=== PATIENT | female | born 1945 | race African-American/Black ===

== ENCOUNTER 2017-03-15 06:00 | Inpatient (IN) ==
--- NOTE | 2017-03-09 09:52 | Cardiothoracic History & Phys ---
History of Present Illness Chief complaint: Intermittent shortness of breath History of present illness: Ms. Mcbride is a 71 year old female who is experiencing intermittent periods of shortness of breath and underwent a workup which included cardiac stress testing and cardiac catheterization which demonstrated critical three-vessel coronary disease including left main coronary involvement. She is referred for bypass surgery but sought a second opinion from Dr.Plavac galina duval who confirmed the diagnosis and also recommended bypass surgery. I saw the patient and agreed with the recommendation of the patient scheduled for admission 03/15 and coronary bypass surgery 03/16/2017. Past medical history includes a history of hyperlipidemia and hypertension and gastroesophageal reflux disease. Patient is a non-smoker and nondrinker. Past surgical history includes section and hysterectomy. She also has a history of right rotator cuff surgery. She has a family history which is positive for cancer on her father's side. Review of systems is noncontributory to the present illness. Physical examination patient is well-developed well-nourished black female in no acute distress. She initially had eyes ears nose and throat show the pupils are equal and react to light and extraocular motions are intact. Oropharynx is benign. Examination of the neck shows no thyromegaly or masses. Examination chest is clear to percussion auscultation. Examination heart shows regular sinus rhythm and no murmurs. Examination of the abdomen shows tenderness and no masses or organomegaly. Neurological examination is grossly intact. Examination extremities shows no cyanosis or edema. Assessment: Coronary artery disease including left main involvement with a normal cardiac ejection fraction. Plan: Coronary bypass grafting 03/16/2017.
[~2017-03-15 06:00] MED LIST: DEXTROSE 50% 25 GM/50 ML VIAL IV PRN; GLUCAGON 1 MG VIAL IM PRN
[2017-03-15] MEDS ORDERED: DEXTROSE 50% 25 GM/50 ML VIAL IV PRN (09:52)
[2017-03-15] MEDS ORDERED: GLUCAGON 1 MG VIAL IM PRN (09:52)
[2017-03-15 10:03] LABS: Basophils % 0.6 % (0.0-0.8); Eosinophils # 0.2 10*3/uL (0.0-0.87); Eosinophils % 3.6 % (0.00-10.9); Hematocrit 39.9 VOL% (35.7-47.0); Hemoglobin 12.9 GM/DL (12.0-16.0); Immature Granulocytes % 0.2 %; Immature Granulocytes Absolute 0.01 #; Lymphocytes # 1.6 10*3/uL (1.4-4.0); Lymphocytes % 32.8 % (21.3-54.2); Mean Corpuscular HGB Conc 32.3 GM/DL (32-36); Mean Corpuscular Hemoglobin 25 PG (27-34); Mean Corpuscular Volume 76.6 FL (87-102); Monocytes # 0.5 10*3/uL (0.11-0.8); Monocytes % 10.4 % (1.7-12.7); Neutrophils # 2.5 10*3/uL (1.4-7.4); Neutrophils % 52.4 % (38.7-73.9); Platelet Count 309 T/CUMM (130-400); Red Blood Count 5.21 MC/CUMM (3.8-5.5); Red Cell Distribution Width 20.4 % (9.3-17.3); White Blood Count 4.7 T/CUMM (4-12)
[2017-03-15 10:39] LABS: Alanine Aminotransferase 29 U/L (13-56); Alkaline Phosphatase 100 U/L (45-117); Aspartate Amino Transferase 27 U/L (0-37); Bilirubin,Total < 0.39 MG/DL (0.2-1.0); Blood Urea Nitrogen 12 MG/DL (7-18); Calcium 9.6 MG/DL (8.5-10.1); Glucose 86 MG/DL (74-106); Osmolality,Calculated 279.3 MOS/KG (273-304); Potassium 3.9 MMOL/L (3.5-5.1); Sodium 141 MMOL/L (136-145); Total Protein 7.9 G/DL (6.4-8.3)
--- NOTE | 2017-03-15 10:56 | EKG Report ---
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
[2017-03-15] MEDS ORDERED: ZALEPLON 5 MG CAPSULE PO PRN (13:30)
--- NOTE | 2017-03-15 16:00 | XRay Report ---
2 view chest. Indication: Coronary artery disease. The heart is normal in size. The pulmonary vasculature is normal. There is no consolidation, pneumothorax, or pleural effusion. Suspected nipple shadow over the right lung base. Mild degenerative changes of the spinal column and shoulders. Impression: Suspected right basilar nipple shadow. This could be confirmed with nipple markers. No acute cardiopulmonary process is seen. PROCEDURE INTERPRETED AT [facility] DEPARTMENT OF RADIOLOGY Final Report Signed by: Dr. Marie Colorado
[2017-03-15] MEDS ORDERED: SODIUM CHLORIDE 0.9% 1,000 ML IV SCH (18:00)
[2017-03-15] MEDS: CHLORHEXIDINE 4% SOLN 118 ML BOTTLE TOP SCH (19:35)
[2017-03-15] MEDS ORDERED: ROSUVASTATIN 20 MG TABLET PO SCH (21:00)
[2017-03-15] MEDS: CHLORHEXIDINE 0.12% ORAL RINSE 60 ML BOTTLE SWISH/SPIT SCH (22:15)
[2017-03-16] MEDS: CHLORHEXIDINE 4% SOLN 118 ML BOTTLE TOP SCH ×2 (04:00→09:32)
[2017-03-16] MEDS ORDERED: PAPAVERINE 60 MG/2 ML VIAL ONE ×2 (04:36→08:29)
[2017-03-16] MEDS ORDERED: VANCOMYCIN 1,000 MG VIAL ONE (04:37)
[2017-03-16] MEDS ORDERED: FAMOTIDINE 20 MG TABLET PO ONE (05:17)
[2017-03-16] MEDS ORDERED: LORazepam 1 MG TABLET PO ONE (05:17)
[2017-03-16] MEDS ORDERED: CEFUROXIME INJ 1,500 MG in SODIUM CHLORIDE 0.9% 50 ML IV ONE (05:30)
[2017-03-16 07:42] LABS: ABG Base Excess -4.8 MMOL/L (-2.5-2.5); ABG HCO3 20.4 MMOL/L (20-26); ABG Oxygen Saturation 99.7 % (95-100); ABG PCO2 34.9 MM HG (35-48); ABG PH 7.364 (7.35-7.45); ABG TCO2 18.1 MMOL/L (23-27); Glucose Heart Surgery 100 MG/DL (74-106); Hemoglobin Heart Surgery 10.3 G/DL (12.0-16.0); Ionized Calcium Arterial 1.01 MMOL/L (1.21-1.46); PCO2 Patient Temp Arterial 34.9 MMHG; PH Patient Temp Arterial 7.364; Patient Temperature 37 CELCIUS; Potassium Heart/CVR 2.9 MMOL/L (3.5-5.1); Sodium Heart/CVR 144 MMOL/L (135-145)
[2017-03-16 08:03] LABS: Apearance,Urine CLEAR (Clear); Bilirubin,Urine Negative (Negative); Blood, Urine Negative (Negative); Glucose,Urine (UA) Negative (Negative); Ketones,Urine Negative (Negative); Mucus,Urine Occasional /LPF (Occasional); Nitrite,Urine Negative (Negative); Protein,Urine Negative; RBC,Urine <1 /HPF (0-4); Squamous Epithelial Cell,Urine Occasional /HPF (0-10); Urine Color Colorless (Yellow); Urine Specific Gravity 1.004 (1.001-1.035); Urine Urobilinogen < 2.0 EU/DL (0.2-1.0); WBC,Urine <1 /HPF (0-6)
[2017-03-16] MEDS ORDERED: NITROPRUSSIDE 50 MG/2 ML VIAL ONE (08:17)
[2017-03-16] MEDS ORDERED: POTASSIUM CHLORIDE RIDER 100 ML IV ONE (08:18)
[2017-03-16] MEDS ORDERED: EPINEPHrine 1 MG/10 ML SYRINGE ONE (08:18)
[2017-03-16] MEDS ORDERED: PHENYLEPHRINE DRIP 40 MG/250 ML PREMIX IV ONE (08:18)
[2017-03-16] MEDS ORDERED: CALCIUM CHLORIDE 1,000 MG/10 ML SYRINGE IV ONE (08:18)
[2017-03-16] MEDS ORDERED: SODIUM BICARBONATE 50 MEQ/50 ML SYRINGE IV ONE ×4 (08:19→19:58)
[2017-03-16] MEDS ORDERED: ALBUMIN 5% 12.5 GM/250 ML VIAL IV ONE (08:41)
[2017-03-16 08:45] LABS: Hemoglobin Heart Surgery 7.1 G/DL (12.0-16.0); PCO2 Patient Temp Venous 32.2 MM HG; PH Patient Temp Venous 7.44; PO2 Patient Temp Venous 35.1 MM HG; Potassium Heart/CVR 5.2 MMOL/L (3.5-5.1); VBG Base Excess -2.6 MEQ/L (0-4); VBG Oxygen Saturation 82.6 %; VBG PCO2 36.7 MMHG (41-51); VBG PH 7.396; VBG PO2 43.4 MMHG (17-40)
[2017-03-16] MEDS ORDERED: PANTOPRAZOLE 40 MG TABLET PO SCH (09:00)
[2017-03-16] MEDS ORDERED: ASPIRIN CHEW 81 MG TABLET PO SCH (09:00)
[2017-03-16] MEDS ORDERED: METOPROLOL SUCCINATE XL 25 MG TABLET PO SCH (09:00)
[2017-03-16 09:13] LABS: Hematocrit Heart Surgery 24.4 PERCENT (37-47); Hemoglobin Heart Surgery 7.8 G/DL (12.0-16.0); PCO2 Patient Temp Venous 33.2 MM HG; PH Patient Temp Venous 7.444; PO2 Patient Temp Venous 38.5 MM HG; Potassium Heart/CVR 4.3 MMOL/L (3.5-5.1); VBG Base Excess -0.8 MEQ/L (0-4); VBG HCO3 23.5 MEQ/L (24-28); VBG Oxygen Saturation 81.7 %; VBG PCO2 38.4 MMHG (41-51); VBG PH 7.4; VBG PO2 47.3 MMHG (17-40)
[2017-03-16] MEDS: CHLORHEXIDINE 0.12% ORAL RINSE 60 ML BOTTLE SWISH/SPIT SCH ×2 (09:32→20:44)
[2017-03-16 09:45] LABS: Hemoglobin Heart Surgery 8.4 G/DL (12.0-16.0); PCO2 Patient Temp Venous 38.2 MM HG; PH Patient Temp Venous 7.406; PO2 Patient Temp Venous 42.3 MM HG; Potassium Heart/CVR 4.2 MMOL/L (3.5-5.1); VBG Base Excess -0.5 MEQ/L (0-4); VBG HCO3 23.7 MEQ/L (24-28); VBG Oxygen Saturation 76.3 %; VBG PCO2 38.2 MMHG (41-51); VBG PH 7.406; VBG PO2 42.3 MMHG (17-40)
[2017-03-16] MEDS ORDERED: ALBUMIN 25% 25 GM/100 ML VIAL IV ONE (10:02)
[2017-03-16] MEDS ORDERED: DEXTROSE 5% KCL 20 MEQ 20 MEQ/1,000 ML BAG IV ONE (10:02)
[2017-03-16] MEDS ORDERED: MANNITOL 100 GM/500 ML BAG IV ONE (10:02)
[2017-03-16] MEDS ORDERED: methylPREDNISolone SOD SUC 1,000 MG/8 ML VIAL ONE (10:03)
[2017-03-16] MEDS ORDERED: MAGNESIUM SULFATE 1 GM/2 ML VIAL ONE (10:03)
[2017-03-16] MEDS ORDERED: HEPARIN 10,000 UNIT/10 ML VIAL ONE (10:03)
[2017-03-16] MEDS ORDERED: PROTAMINE SULFATE 250 MG/25 ML VIAL IV ONE (10:03)
[2017-03-16] MEDS ORDERED: FUROSEMIDE 20 MG/2 ML VIAL ONE (10:03)
[2017-03-16 10:11] LABS: ABG Base Excess -1.5 MMOL/L (-2.5-2.5); ABG HCO3 23.1 MMOL/L (20-26); ABG Oxygen Saturation 99.8 % (95-100); ABG PCO2 31.6 MM HG (35-48); ABG PH 7.449 (7.35-7.45); ABG TCO2 20.3 MMOL/L (23-27); Glucose Heart Surgery 192 MG/DL (74-106); Hematocrit Heart Surgery 25.7 PERCENT (37-47); Hemoglobin Heart Surgery 8.3 G/DL (12.0-16.0); Ionized Calcium Arterial 1.29 MMOL/L (1.21-1.46); PCO2 Patient Temp Arterial 31.6 MMHG; PH Patient Temp Arterial 7.449; Patient Temperature 37 CELCIUS; Potassium Heart/CVR 3.8 MMOL/L (3.5-5.1); Sodium Heart/CVR 137 MMOL/L (135-145)
[2017-03-16] MEDS ORDERED: MIDAZOLAM 10 MG/2 ML VIAL ONE ×3 (10:19→11:23)
[2017-03-16] MEDS: SODIUM CHLORIDE 0.45% 1,000 ML IV SCH ×2 (11:00)
[2017-03-16] MEDS ORDERED: NITROPRUSSIDE 100 MG in DEXTROSE 5% 250 ML IV PRN (11:08)
[2017-03-16] MEDS ORDERED: MIDAZOLAM 10 MG/2 ML VIAL IV PRN (11:08)
[2017-03-16] MEDS ORDERED: INSULIN REGULAR 100 UNIT/ML IV ONE (11:08)
[2017-03-16] MEDS ORDERED: VECURONIUM 10 MG VIAL IV PRN ×2 (11:08)
[2017-03-16] MEDS ORDERED: CALCIUM CHLORIDE 1,000 MG/10 ML SYRINGE IV PRN (11:08)
[2017-03-16] MEDS ORDERED: MAGNESIUM SULF RIDER 2 GM in PREMIX 1 EACH IV PRN (11:08)
[2017-03-16] MEDS ORDERED: PHENYLEPHRINE DRIP 40 MG/250 ML PREMIX IV PRN (11:08)
[2017-03-16] MEDS ORDERED: MORPHINE 10 MG/1 ML VIAL IV PRN (11:08)
[2017-03-16] MEDS ORDERED: ONDANSETRON 4 MG/2 ML VIAL IV PRN (11:08)
[2017-03-16] MEDS ORDERED: DEXTROSE 50% 25 GM/50 ML VIAL IV PRN ×2 (11:08)
[2017-03-16] MEDS ORDERED: ACETAMINOPHEN 650 MG SUPP RECTAL PRN (11:08)
[2017-03-16] MEDS ORDERED: MIDAZOLAM 2 MG/2 ML VIAL IV PRN (11:08)
[2017-03-16] MEDS ORDERED: MAGNESIUM SULF RIDER 4 GM in PREMIX 1 EACH IV PRN (11:08)
--- NOTE | 2017-03-16 11:11 | Operative Note ---
Date of procedure: 03/16/17 Pre-op diagnosis: Coronary artery disease Post-op diagnosis: same Procedure: Procedure: Coronary bypass grafting 3 with saphenous vein graft to the anterior descending ramus intermedius and right coronary arteries. Findings: Patient is a 71-year-old lady who presented with substernal chest discomfort and cardiac catheterization demonstrating three-vessel coronary disease with left main involvement. The time of surgery left ventricular function was noted to be normal. Left internal mammary artery was deemed too small in its distal segment to service of bypass graft and therefore saphenous vein grafts were placed to the anterior descending the ramus intermedius and the right coronary arteries. Distal vessels were all of adequate size and free of disease at the site of anastomosis. Patient tolerated procedure well and was returned to recovery in satisfactory condition. Procedure: Patient brought to the operating room placed on the operating table in the supine position. After satisfactory induction of general anesthesia the chest abdomen and legs were prepped and draped in sterile fashion. Greater saphenous vein was harvested from each lower leg and prepared as an arterial graft. Incisions in the leg were closed with 3-0 silk cutaneous Monocryl and skin anat. Standard sternotomy incision was made and the heart was suspended in pericardial cradle. Left internal mammary artery was examined and felt to be too small distally for suitable anastomosis. Patient was prepared for cardiopulmonary bypass with systemic heparinization and cannulation of the ascending aorta and right atrium. Cardiopulmonary bypass was begun and the heart arrested after aortic crossclamping with cardioplegia solution injected into the aortic root. Heart was protected during the period of crossclamping with topical saline slush. Distal anastomoses were constructed as noted above and then the aorta was unclamped reestablishing cardiac action. The proximal anastomoses were constructed between the inflow and is of the saphenous vein grafts and the ascending aorta the patient was then weaned from cardiopulmonary bypass without difficulty. Heparin effect was reversed with protamine and decannulation carried out with the defects in the ascending aorta and right atrium closed with 3-0 Prolene. Operative field was inspected for hemostasis and this was considered adequate the incision was closed with interrupted stainless steel wire and the sternum and 0 Monocryl in the presternal fascia. Skin was closed with 3-0 subcuticular Monocryl. 2 chest tubes were left in the anterior mediastinum and brought out through separate stab incisions. Sterile dressings were applied and the patient returned to recovery in satisfactory condition. Anesthesia: SRAVANI Surgeon / Physician: Reji Hurst Estimated blood loss: other (Unable to determine because of cardiopulmonary bypass) Condition: critical Disposition: ICU Results - Labs CBC & BMP: 03/16/17 10:06 03/15/17 09:54 Discharge Plan - Discharge Medications No Action NIFEdipine [Nifedipine ER] 30 mg PO BEDTIME Nitroglycerin 0.1 mg/Hr Patch [Nitro-Dur 0.1 mg/hr Patch] 1 patch TOP DAILY Metoprolol Succinate Xl [Toprol Xl] 25 mg PO BEDTIME Rosuvastatin Calcium 20 mg PO BEDTIME Omeprazole 40 mg PO BEDTIME Aspirin [Ecotrin] 81 mg PO BEDTIME - Follow Up or Referral - Forms/Instructions
[2017-03-16] MEDS ORDERED: PROTAMINE SULFATE 50 MG/5 ML VIAL IV ONE ×2 (11:13→11:15)
[2017-03-16] MEDS ORDERED: SUFentanil 250 MCG/5 ML AMP ONE (11:23)
[2017-03-16] MEDS ORDERED: NITROGLYCERIN DRIP 50 MG/250 ML BOTTLE IV ONE (11:25)
[2017-03-16] MEDS ORDERED: PHENYLEPHRINE DRIP 20 MG/250 ML PREMIX IV ONE (11:25)
[2017-03-16] MEDS ORDERED: VECURONIUM 10 MG VIAL IV ONE (11:28)
[2017-03-16] MEDS ORDERED: SODIUM CHLORIDE 0.9% 500 ML IV ONE (11:28)
[2017-03-16] MEDS ORDERED: LACTATED RINGERS 1,000 ML IV ONE (11:28)
[2017-03-16] MEDS ORDERED: SODIUM CHLORIDE 0.9% 2,000 ML IV ONE (11:28)
[2017-03-16 12:25] LABS: ABG Base Excess -2.6 MMOL/L (-2.5-2.5); ABG HCO3 22.2 MMOL/L (20-26); ABG Oxygen Saturation 98.5 % (95-100); ABG PCO2 36.1 MM HG (35-48); Glucose Heart Surgery 150 MG/DL (74-106); Hemoglobin Heart Surgery 9.7 G/DL (12.0-16.0)
[2017-03-16 12:26] LABS: Basophils % 0.1 % (0.0-0.8); Eosinophils % 0.3 % (0.00-10.9); Hematocrit 27.8 VOL% (35.7-47.0); Hemoglobin 9.1 GM/DL (12.0-16.0); Immature Granulocytes % 0.7 %; Immature Granulocytes Absolute 0.08 #; Lymphocytes # 1.2 10*3/uL (1.4-4.0); Lymphocytes % 11.5 % (21.3-54.2); Mean Corpuscular HGB Conc 32.7 GM/DL (32-36); Mean Corpuscular Hemoglobin 25 PG (27-34); Mean Platelet Volume 10.7 FL (9.6-12.0); Monocytes # 0.5 10*3/uL (0.11-0.8); Monocytes % 4.8 % (1.7-12.7); Neutrophils # 8.8 10*3/uL (1.4-7.4); Neutrophils % 82.6 % (38.7-73.9); Platelet Count 172 T/CUMM (130-400); Red Blood Count 3.66 MC/CUMM (3.8-5.5); Red Cell Distribution Width 19.8 % (9.3-17.3); White Blood Count 10.7 T/CUMM (4-12)
[2017-03-16 12:40] LABS: INR 1.3; PT Patient Result 13.5 SECS
[2017-03-16] MEDS: POTASSIUM CHLORIDE RIDER 20 MEQ in PREMIX 1 EACH IV PRN ×7 (12:45→23:25)
[2017-03-16] MEDS: ALBUMIN 5% 12.5 GM in PREMIX 1 EACH IV PRN ×2 (12:54→16:00)
[2017-03-16] MEDS: KETOROLAC 30 MG/1 ML VIAL IV SCH ×3 (12:56→23:25)
--- NOTE | 2017-03-16 13:04 | XRay Report ---
XR chest 1V portable Indication: Catheter placement, surgery Comparison: 15 March 2017 Findings: The heart and mediastinum are within normal limits size and configuration post cardiac surgery changes. Lines and tubes are in good position. The pulmonary vascularity is normal in caliber. No lung infiltrates, effusions, pneumothorax or other abnormality is demonstrated. Impression: No significant change. PROCEDURE INTERPRETED AT [facility] DEPARTMENT OF RADIOLOGY Final Report Signed by: Dr. Shemar Mcguire
[2017-03-16 13:05] LABS: Bilirubin,Total 0.7 MG/DL (0.2-1.0); Calcium 8.4 MG/DL (8.5-10.1); Magnesium 2.1 MG/DL (1.8-2.4); Osmolality,Calculated 294.3 MOS/KG (273-304); Potassium 2.9 MMOL/L (3.5-5.1); Total Protein 5.1 G/DL (6.4-8.3)
[2017-03-16 13:33] LABS: CKMB % 5.4 %
[2017-03-16 13:36] LABS: Troponin I Only 6.38 NG/ML (0.00-0.045)
[2017-03-16] MEDS: INSULIN REGULAR DRIP 100 ML IV SCH (14:19)
[2017-03-16 14:37] LABS: ABG Base Excess -2.7 MMOL/L (-2.5-2.5); ABG HCO3 22.1 MMOL/L (20-26); ABG PCO2 35.5 MM HG (35-48); ABG PH 7.393 (7.35-7.45); ABG TCO2 19.7 MMOL/L (23-27); Glucose Heart Surgery 170 MG/DL (74-106); Hematocrit Heart Surgery 31.2 PERCENT (37-47); Hemoglobin Heart Surgery 10.1 G/DL (12.0-16.0); Potassium Heart/CVR 3.7 MMOL/L (3.5-5.1)
[2017-03-16] MEDS: LACTATED RINGERS 250 ML IV PRN ×6 (15:01→18:00)
[2017-03-16] MEDS: POTASSIUM CHLORIDE RIDER 10 MEQ in PREMIX 1 EACH IV PRN ×2 (15:15→20:03)
[2017-03-16] MEDS ORDERED: AMIODARONE INJ 150 MG in DEXTROSE 5% 100 ML IV ONE (16:05)
[2017-03-16] MEDS: INSULIN REGULAR 100 UNIT/ML IV PRN ×2 (16:28→18:13)
[2017-03-16] MEDS ORDERED: AMIODARONE INJ 450 MG in DEXTROSE 5% 241 ML IV SCH ×2 (16:30)
[2017-03-16 17:12] LABS: ABG Base Excess -4.7 MMOL/L (-2.5-2.5); ABG HCO3 20.5 MMOL/L (20-26); ABG PCO2 39.2 MM HG (35-48); ABG PH 7.332 (7.35-7.45); ABG TCO2 19.4 MMOL/L (23-27); Glucose Heart Surgery 186 MG/DL (74-106); Hematocrit Heart Surgery 26.5 PERCENT (37-47); Hemoglobin Heart Surgery 8.5 G/DL (12.0-16.0); Potassium Heart/CVR 3.2 MMOL/L (3.5-5.1)
[2017-03-16 19:11] LABS: ABG Base Excess -6.5 MMOL/L (-2.5-2.5); ABG HCO3 19.1 MMOL/L (20-26); ABG Oxygen Saturation 98.8 % (95-100); ABG PCO2 37.1 MM HG (35-48); ABG PH 7.317 (7.35-7.45); ABG TCO2 17.5 MMOL/L (23-27); Glucose Heart Surgery 178 MG/DL (74-106); Hematocrit Heart Surgery 30.5 PERCENT (37-47); Hemoglobin Heart Surgery 9.8 G/DL (12.0-16.0); Potassium Heart/CVR 3.7 MMOL/L (3.5-5.1)
[2017-03-16] MEDS: CEFUROXIME INJ 1,500 MG in SODIUM CHLORIDE 0.9% 100 ML IV SCH (19:25)
[2017-03-16] MEDS: MORPHINE 2 MG/1 ML SYRINGE IV PRN (20:05)
[2017-03-16 20:07] LABS: Troponin I Only 7.4 NG/ML (0.00-0.045)
[2017-03-16 20:48] LABS: ABG Base Excess -3.9 MMOL/L (-2.5-2.5); ABG HCO3 21.2 MMOL/L (20-26); ABG Oxygen Saturation 98.9 % (95-100); ABG PCO2 37.9 MM HG (35-48); ABG PH 7.355 (7.35-7.45); ABG TCO2 19.4 MMOL/L (23-27); Glucose Heart Surgery 171 MG/DL (74-106); Hematocrit Heart Surgery 30.1 PERCENT (37-47); Hemoglobin Heart Surgery 9.7 G/DL (12.0-16.0); Potassium Heart/CVR 3.8 MMOL/L (3.5-5.1)
[2017-03-16 23:16] LABS: ABG Base Excess -3.5 MMOL/L (-2.5-2.5); ABG HCO3 21.2 MMOL/L (20-26); ABG Oxygen Saturation 98.1 % (95-100); ABG PCO2 36.8 MM HG (35-48); ABG PH 7.378 (7.35-7.45); ABG PO2 148.5 MM HG (80-95); ABG TCO2 22.3 MMOL/L (23-27); Glucose Heart Surgery 145 MG/DL (74-106); Hemoglobin Heart Surgery 10.7 G/DL (12.0-16.0); Potassium Heart/CVR 3.4 MMOL/L (3.5-5.1)
[2017-03-17] MEDS ORDERED: AMIODARONE INJ 450 MG in DEXTROSE 5% 241 ML IV SCH
[2017-03-17] MEDS ORDERED: FUROSEMIDE 40 MG/4 ML VIAL IV ONE (00:05)
[2017-03-17] MEDS: POTASSIUM CHLORIDE RIDER 20 MEQ in PREMIX 1 EACH IV PRN ×2 (00:11→04:29)
[2017-03-17] MEDS: INSULIN REGULAR DRIP 100 ML IV SCH (01:06)
[2017-03-17 01:40] LABS: ABG Base Excess -1.1 MMOL/L (-2.5-2.5); ABG Oxygen Saturation 98.3 % (95-100); ABG PCO2 36.6 MM HG (35-48); ABG PH 7.417 (7.35-7.45); ABG PO2 148.5 MM HG (80-95); ABG TCO2 24.2 MMOL/L (23-27); Glucose Heart Surgery 123 MG/DL (74-106); Potassium Heart/CVR 3.7 MMOL/L (3.5-5.1)
[2017-03-17 03:10] LABS: ABG HCO3 23.6 MMOL/L (20-26); ABG Oxygen Saturation 98.2 % (95-100); ABG PCO2 44.4 MM HG (35-48); ABG PH 7.353 (7.35-7.45); ABG TCO2 22.5 MMOL/L (23-27); Glucose Heart Surgery 143 MG/DL (74-106); Hematocrit Heart Surgery 31.6 PERCENT (37-47); Hemoglobin Heart Surgery 10.2 G/DL (12.0-16.0); Potassium Heart/CVR 4.3 MMOL/L (3.5-5.1)
[2017-03-17 03:31] LABS: Basophils % 0.1 % (0.0-0.8); Hematocrit 29.8 VOL% (35.7-47.0); Immature Granulocytes % 0.7 %; Immature Granulocytes Absolute 0.11 #; Lymphocytes # 0.9 10*3/uL (1.4-4.0); Lymphocytes % 5.6 % (21.3-54.2); Mean Corpuscular HGB Conc 33.6 GM/DL (32-36); Mean Corpuscular Hemoglobin 27 PG (27-34); Mean Corpuscular Volume 78.8 FL (87-102); Mean Platelet Volume 11.9 FL (9.6-12.0); Monocytes # 1.4 10*3/uL (0.11-0.8); Monocytes % 8.3 % (1.7-12.7); Neutrophils # 14.5 10*3/uL (1.4-7.4); Neutrophils % 85.3 % (38.7-73.9); Platelet Count 168 T/CUMM (130-400); Red Blood Count 3.78 MC/CUMM (3.8-5.5); Red Cell Distribution Width 19.1 % (9.3-17.3); White Blood Count 16.9 T/CUMM (4-12)
[2017-03-17 03:46] LABS: Albumin 3.5 G/DL (3.4-5.0); Bilirubin,Direct 0.12 MG/DL (0.0-0.20); Bilirubin,Total 0.4 MG/DL (0.2-1.0); Calcium 8.4 MG/DL (8.5-10.1); Magnesium 1.8 MG/DL (1.8-2.4); Potassium 4.3 MMOL/L (3.5-5.1); Total Protein 5.6 G/DL (6.4-8.3)
[2017-03-17] MEDS: MORPHINE 2 MG/1 ML SYRINGE IV PRN ×3 (04:02→20:49)
[2017-03-17] MEDS: INSULIN REGULAR 100 UNIT/ML SUBCUT SCH ×2 (04:26→10:41)
[2017-03-17 04:59] LABS: CKMB % 7.8 %
[2017-03-17 05:01] LABS: Troponin I Only 26.7 NG/ML (0.00-0.045)
[2017-03-17 06:10] LABS: ABG Base Excess -2.2 MMOL/L (-2.5-2.5); ABG HCO3 22.3 MMOL/L (20-26); ABG Oxygen Saturation 98.4 % (95-100); ABG PCO2 37.1 MM HG (35-48); ABG PH 7.396 (7.35-7.45); ABG TCO2 23.4 MMOL/L (23-27); Glucose Heart Surgery 151 MG/DL (74-106); Hemoglobin Heart Surgery 10.6 G/DL (12.0-16.0); Potassium Heart/CVR 5.2 MMOL/L (3.5-5.1)
[2017-03-17] MEDS: KETOROLAC 30 MG/1 ML VIAL IV SCH ×3 (06:11→20:44)
[2017-03-17] MEDS: CEFUROXIME INJ 1,500 MG in SODIUM CHLORIDE 0.9% 100 ML IV SCH (06:11)
--- NOTE | 2017-03-17 07:51 | EKG Report ---
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
--- NOTE | 2017-03-17 08:19 | Cardiothoracic Progress Note ---
Cardiothoracic Subjective Interval history: Patient is awake alert and extubated. Vital signs have been stable through the night and she is breathing comfortably this morning and remains in normal sinus rhythm. She did have a troponin elevation to 26 this morning but appears to be hemodynamically stable. She is breathing comfortably and blood gases are satisfactory post extubation. Chest tube drainage is minimal and her chest tubes have been removed. Hopefully she can be transferred to telemetry later this morning. Exam (Progress Note) - Constitutional Vitals: Period Temp Pulse Resp BP Sys/Rubio Pulse Ox Last 24 Hr 97.3 F-98.7 F 68-117 10-29 80-138/46-85 100-100 Result/EKG - Labs CBC & BMP: 03/17/17 03:02 03/17/17 03:13 Labs: Laboratory Results - last 24 hr 03/15/17 03/16/17 03/16/17 09:54 08:35 09:06 WBC RBC Hgb Hct MCV MCH MCHC RDW Plt Count MPV Neut % (Auto) Lymph % (Auto) [place] % (Auto) Eos % (Auto) Baso % (Auto) Neut # (Auto) Lymph # (Auto) [place] # (Auto) Eos # (Auto) Baso # (Auto) Immature Gran % Nucleated RBC % Immature Gran # Nucleated RBCs # Immature Plt Fraction INR PT Patient/Control Mix Circ Anticoag PTT Patient Temperature 34 34 ABG pH ABG pH at Pt Temp 7.440 7.444 ABG pCO2 ABG pCO2 at Pt Temp 32.2 33.2 ABG pO2 ABG pO2 at Pt Temp 35.1 38.5 ABG HCO3 ABG Total CO2 ABG O2 Saturation ABG Base Excess ABG Sodium 129 L 134 L VBG pH 7.396 7.400 VBG pCO2 36.7 L 38.4 L VBG pO2 43.4 H 47.3 H VBG HCO3 22.0 L 23.5 L VBG Total CO2 23.1 22.3 VBG O2 Saturation 82.6 81.7 VBG Base Excess -2.6 L -0.8 L Hemoglobin 7.1 L 7.8 L Hematocrit 21.0 L 24.4 L Potassium 5.2 H 4.3 Glucose 318 H 257 H Ionized Calcium FiO2 80.00 80.00 Sodium Chloride Carbon Dioxide Anion Gap BUN Creatinine GFR Calculation BUN/Creatinine Ratio POC Glucose Calculated Osmolality Calcium Venous Ioniz Calcium 0.82 0.97 L Magnesium Total Bilirubin Direct Bilirubin AST ALT Alkaline Phosphatase Total Creatine Kinase CK-MB (CK-2) CK and CKMB Interp Troponin I Total Protein Albumin Globulin Albumin/Globulin Ratio Blood Type A POSITIVE Antibody Screen Negative Crossmatch See Detail 03/16/17 03/16/17 03/16/17 09:35 10:06 10:06 WBC RBC Hgb Hct MCV MCH MCHC RDW Plt Count 134 D MPV Neut % (Auto) Lymph % (Auto) [place] % (Auto) Eos % (Auto) Baso % (Auto) Neut # (Auto) Lymph # (Auto) [place] # (Auto) Eos # (Auto) Baso # (Auto) Immature Gran % Nucleated RBC % Immature Gran # Nucleated RBCs # Immature Plt Fraction INR PT Patient/Control Mix Circ Anticoag PTT Patient Temperature 37 37 ABG pH 7.449 ABG pH at Pt Temp 7.406 7.449 ABG pCO2 31.6 L ABG pCO2 at Pt Temp 38.2 31.6 ABG pO2 525.0 H ABG pO2 at Pt Temp 42.3 525.0 ABG HCO3 23.1 ABG Total CO2 20.3 L ABG O2 Saturation 99.8 ABG Base Excess -1.5 ABG Sodium 135 137 VBG pH 7.406 VBG pCO2 38.2 L VBG pO2 42.3 H VBG HCO3 23.7 L VBG Total CO2 22.4 VBG O2 Saturation 76.3 VBG Base Excess -0.5 L Hemoglobin 8.4 L 8.3 L Hematocrit 26.0 L 25.7 L Potassium 4.2 3.8 Glucose 228 H 192 H Ionized Calcium 1.29 FiO2 80.00 Sodium Chloride Carbon Dioxide Anion Gap BUN Creatinine GFR Calculation BUN/Creatinine Ratio POC Glucose Calculated Osmolality Calcium Venous Ioniz Calcium 0.96 L Magnesium Total Bilirubin Direct Bilirubin AST ALT Alkaline Phosphatase Total Creatine Kinase CK-MB (CK-2) CK and CKMB Interp Troponin I Total Protein Albumin Globulin Albumin/Globulin Ratio Blood Type Antibody Screen Crossmatch 03/16/17 03/16/17 03/16/17 11:08 11:08 11:08 WBC 10.7 D RBC 3.66 L D Hgb 9.1 L D Hct 27.8 L MCV 76.0 L MCH 25 L MCHC 32.7 RDW 19.8 H Plt Count 172 D MPV 10.7 Neut % (Auto) 82.6 H Lymph % (Auto) 11.5 L [place] % (Auto) 4.8 Eos % (Auto) 0.3 Baso % (Auto) 0.1 Neut # (Auto) 8.8 H Lymph # (Auto) 1.2 L [place] # (Auto) 0.5 Eos # (Auto) 0.0 Baso # (Auto) 0.0 Immature Gran % 0.7 Nucleated RBC % 0.0 Immature Gran # 0.08 Nucleated RBCs # 0.00 Immature Plt Fraction 0.0 INR 1.3 PT Patient/Control Mix 13.5 Circ Anticoag PTT 32.0 Patient Temperature ABG pH ABG pH at Pt Temp ABG pCO2 ABG pCO2 at Pt Temp ABG pO2 ABG pO2 at Pt Temp ABG HCO3 ABG Total CO2 ABG O2 Saturation ABG Base Excess ABG Sodium VBG pH VBG pCO2 VBG pO2 VBG HCO3 VBG Total CO2 VBG O2 Saturation VBG Base Excess Hemoglobin Hematocrit Potassium 2.9 L Glucose 143 H Ionized Calcium FiO2 Sodium 148 H Chloride 114 H Carbon Dioxide 24 Anion Gap 12.9 BUN 10 Creatinine 0.70 GFR Calculation 106 BUN/Creatinine Ratio 14.00 POC Glucose Calculated Osmolality 294.3 Calcium 8.4 L Venous Ioniz Calcium Magnesium 2.1 Total Bilirubin 0.70 Direct Bilirubin AST 30 ALT 19 Alkaline Phosphatase 63 Total Creatine Kinase CK-MB (CK-2) CK and CKMB Interp Troponin I Total Protein 5.1 L Albumin 3.0 L Globulin 2.1 L Albumin/Globulin Ratio 1.4 Blood Type Antibody Screen Crossmatch 03/16/17 03/16/17 03/16/17 11:08 12:15 13:24 WBC RBC Hgb Hct MCV MCH MCHC RDW Plt Count MPV Neut % (Auto) Lymph % (Auto) [place] % (Auto) Eos % (Auto) Baso % (Auto) Neut # (Auto) Lymph # (Auto) [place] # (Auto) Eos # (Auto) Baso # (Auto) Immature Gran % Nucleated RBC % Immature Gran # Nucleated RBCs # Immature Plt Fraction INR PT Patient/Control Mix Circ Anticoag PTT Patient Temperature ABG pH 7.390 ABG pH at Pt Temp ABG pCO2 36.1 ABG pCO2 at Pt Temp ABG pO2 125.0 H ABG pO2 at Pt Temp ABG HCO3 22.2 ABG Total CO2 20.0 L ABG O2 Saturation 98.5 ABG Base Excess -2.6 L ABG Sodium VBG pH VBG pCO2 VBG pO2 VBG HCO3 VBG Total CO2 VBG O2 Saturation VBG Base Excess Hemoglobin 9.7 L Hematocrit 30.0 L Potassium 3.0 L Glucose 150 H Ionized Calcium FiO2 Sodium Chloride Carbon Dioxide Anion Gap BUN Creatinine GFR Calculation BUN/Creatinine Ratio POC Glucose 170 H Calculated Osmolality Calcium Venous Ioniz Calcium Magnesium Total Bilirubin Direct Bilirubin AST ALT Alkaline Phosphatase Total Creatine Kinase 333 H CK-MB (CK-2) 17.9 H CK and CKMB Interp 5.4 Troponin I 6.380 H Total Protein Albumin Globulin Albumin/Globulin Ratio Blood Type Antibody Screen Crossmatch 03/16/17 03/16/17 03/16/17 14:12 14:30 15:13 WBC RBC Hgb Hct MCV MCH MCHC RDW Plt Count MPV Neut % (Auto) Lymph % (Auto) [place] % (Auto) Eos % (Auto) Baso % (Auto) Neut # (Auto) Lymph # (Auto) [place] # (Auto) Eos # (Auto) Baso # (Auto) Immature Gran % Nucleated RBC % Immature Gran # Nucleated RBCs # Immature Plt Fraction INR PT Patient/Control Mix Circ Anticoag PTT Patient Temperature ABG pH 7.393 ABG pH at Pt Temp ABG pCO2 35.5 ABG pCO2 at Pt Temp ABG pO2 164.0 H ABG pO2 at Pt Temp ABG HCO3 22.1 ABG Total CO2 19.7 L ABG O2 Saturation 99.0 ABG Base Excess -2.7 L ABG Sodium VBG pH VBG pCO2 VBG pO2 VBG HCO3 VBG Total CO2 VBG O2 Saturation VBG Base Excess Hemoglobin 10.1 L Hematocrit 31.2 L Potassium 3.7 Glucose 170 H Ionized Calcium FiO2 Sodium Chloride Carbon Dioxide Anion Gap BUN Creatinine GFR Calculation BUN/Creatinine Ratio POC Glucose 167 H 155 H Calculated Osmolality Calcium Venous Ioniz Calcium Magnesium Total Bilirubin Direct Bilirubin AST ALT Alkaline Phosphatase Total Creatine Kinase CK-MB (CK-2) CK and CKMB Interp Troponin I Total Protein Albumin Globulin Albumin/Globulin Ratio Blood Type Antibody Screen Crossmatch 03/16/17 03/16/17 03/16/17 16:12 16:13 17:10 WBC RBC Hgb Hct MCV MCH MCHC RDW Plt Count MPV Neut % (Auto) Lymph % (Auto) [place] % (Auto) Eos % (Auto) Baso % (Auto) Neut # (Auto) Lymph # (Auto) [place] # (Auto) Eos # (Auto) Baso # (Auto) Immature Gran % Nucleated RBC % Immature Gran # Nucleated RBCs # Immature Plt Fraction INR PT Patient/Control Mix Circ Anticoag PTT Patient Temperature ABG pH 7.332 L ABG pH at Pt Temp ABG pCO2 39.2 ABG pCO2 at Pt Temp ABG pO2 163.0 H ABG pO2 at Pt Temp ABG HCO3 20.5 ABG Total CO2 19.4 L ABG O2 Saturation 99.0 ABG Base Excess -4.7 L ABG Sodium VBG pH VBG pCO2 VBG pO2 VBG HCO3 VBG Total CO2 VBG O2 Saturation VBG Base Excess Hemoglobin 8.5 L Hematocrit 26.5 L Potassium 3.2 L Glucose 186 H Ionized Calcium FiO2 Sodium Chloride Carbon Dioxide Anion Gap BUN Creatinine GFR Calculation BUN/Creatinine Ratio POC Glucose 174 H 175 H Calculated Osmolality Calcium Venous Ioniz Calcium Magnesium Total Bilirubin Direct Bilirubin AST ALT Alkaline Phosphatase Total Creatine Kinase CK-MB (CK-2) CK and CKMB Interp Troponin I Total Protein Albumin Globulin Albumin/Globulin Ratio Blood Type Antibody Screen Crossmatch 03/16/17 03/16/17 03/16/17 18:11 19:05 19:05 WBC RBC Hgb Hct MCV MCH MCHC RDW Plt Count MPV Neut % (Auto) Lymph % (Auto) [place] % (Auto) Eos % (Auto) Baso % (Auto) Neut # (Auto) Lymph # (Auto) [place] # (Auto) Eos # (Auto) Baso # (Auto) Immature Gran % Nucleated RBC % Immature Gran # Nucleated RBCs # Immature Plt Fraction INR PT Patient/Control Mix Circ Anticoag PTT Patient Temperature ABG pH 7.317 L ABG pH at Pt Temp ABG pCO2 37.1 ABG pCO2 at Pt Temp ABG pO2 160.0 H ABG pO2 at Pt Temp ABG HCO3 19.1 L ABG Total CO2 17.5 L ABG O2 Saturation 98.8 ABG Base Excess -6.5 L ABG Sodium VBG pH VBG pCO2 VBG pO2 VBG HCO3 VBG Total CO2 VBG O2 Saturation VBG Base Excess Hemoglobin 9.8 L Hematocrit 30.5 L Potassium 3.7 Glucose 178 H Ionized Calcium FiO2 Sodium Chloride Carbon Dioxide Anion Gap BUN Creatinine GFR Calculation BUN/Creatinine Ratio POC Glucose 213 H Calculated Osmolality Calcium Venous Ioniz Calcium Magnesium Total Bilirubin Direct Bilirubin AST ALT Alkaline Phosphatase Total Creatine Kinase 574 H D CK-MB (CK-2) 34.4 H D CK and CKMB Interp 6.0 Troponin I 7.400 H Total Protein Albumin Globulin Albumin/Globulin Ratio Blood Type Antibody Screen Crossmatch 03/16/17 03/16/17 03/17/17 20:38 23:10 01:33 WBC RBC Hgb Hct MCV MCH MCHC RDW Plt Count MPV Neut % (Auto) Lymph % (Auto) [place] % (Auto) Eos % (Auto) Baso % (Auto) Neut # (Auto) Lymph # (Auto) [place] # (Auto) Eos # (Auto) Baso # (Auto) Immature Gran % Nucleated RBC % Immature Gran # Nucleated RBCs # Immature Plt Fraction INR PT Patient/Control Mix Circ Anticoag PTT Patient Temperature ABG pH 7.355 7.378 7.417 ABG pH at Pt Temp ABG pCO2 37.9 36.8 36.6 ABG pCO2 at Pt Temp ABG pO2 142.0 H 148.5 H 148.5 H ABG pO2 at Pt Temp ABG HCO3 21.2 21.2 23.0 ABG Total CO2 19.4 L 22.3 L 24.2 ABG O2 Saturation 98.9 98.1 98.3 ABG Base Excess -3.9 L -3.5 L -1.1 ABG Sodium VBG pH VBG pCO2 VBG pO2 VBG HCO3 VBG Total CO2 VBG O2 Saturation VBG Base Excess Hemoglobin 9.7 L 10.7 L 11.0 L Hematocrit 30.1 L 31.0 L 32.0 L Potassium 3.8 3.4 L 3.7 Glucose 171 H 145 H 123 H Ionized Calcium FiO2 Sodium Chloride Carbon Dioxide Anion Gap BUN Creatinine GFR Calculation BUN/Creatinine Ratio POC Glucose Calculated Osmolality Calcium Venous Ioniz Calcium Magnesium Total Bilirubin Direct Bilirubin AST ALT Alkaline Phosphatase Total Creatine Kinase CK-MB (CK-2) CK and CKMB Interp Troponin I Total Protein Albumin Globulin Albumin/Globulin Ratio Blood Type Antibody Screen Crossmatch 03/17/17 03/17/17 03/17/17 03:02 03:02 03:13 WBC 16.9 H D RBC 3.78 L Hgb 10.0 L Hct 29.8 L MCV 78.8 L MCH 27 MCHC 33.6 RDW 19.1 H Plt Count 168 MPV 11.9 Neut % (Auto) 85.3 H Lymph % (Auto) 5.6 L [place] % (Auto) 8.3 Eos % (Auto) 0.0 Baso % (Auto) 0.1 Neut # (Auto) 14.5 H Lymph # (Auto) 0.9 L [place] # (Auto) 1.4 H Eos # (Auto) 0.0 Baso # (Auto) 0.0 Immature Gran % 0.7 Nucleated RBC % 0.0 Immature Gran # 0.11 Nucleated RBCs # 0.00 Immature Plt Fraction 0.0 INR PT Patient/Control Mix Circ Anticoag PTT Patient Temperature ABG pH 7.353 ABG pH at Pt Temp ABG pCO2 44.4 ABG pCO2 at Pt Temp ABG pO2 121.0 H ABG pO2 at Pt Temp ABG HCO3 23.6 ABG Total CO2 22.5 L ABG O2 Saturation 98.2 ABG Base Excess -1.0 ABG Sodium VBG pH VBG pCO2 VBG pO2 VBG HCO3 VBG Total CO2 VBG O2 Saturation VBG Base Excess Hemoglobin 10.2 L Hematocrit 31.6 L Potassium 4.3 Glucose 143 H Ionized Calcium FiO2 Sodium Chloride Carbon Dioxide Anion Gap BUN Creatinine GFR Calculation BUN/Creatinine Ratio POC Glucose Calculated Osmolality Calcium Venous Ioniz Calcium Magnesium Total Bilirubin Direct Bilirubin AST ALT Alkaline Phosphatase Total Creatine Kinase 1543 H D CK-MB (CK-2) 120.0 H D CK and CKMB Interp 7.8 Troponin I 26.700 H D Total Protein Albumin Globulin Albumin/Globulin Ratio Blood Type Antibody Screen Crossmatch 03/17/17 03/17/17 03:13 06:05 WBC RBC Hgb Hct MCV MCH MCHC RDW Plt Count MPV Neut % (Auto) Lymph % (Auto) [place] % (Auto) Eos % (Auto) Baso % (Auto) Neut # (Auto) Lymph # (Auto) [place] # (Auto) Eos # (Auto) Baso # (Auto) Immature Gran % Nucleated RBC % Immature Gran # Nucleated RBCs # Immature Plt Fraction INR PT Patient/Control Mix Circ Anticoag PTT Patient Temperature ABG pH 7.396 ABG pH at Pt Temp ABG pCO2 37.1 ABG pCO2 at Pt Temp ABG pO2 154.0 H ABG pO2 at Pt Temp ABG HCO3 22.3 ABG Total CO2 23.4 ABG O2 Saturation 98.4 ABG Base Excess -2.2 ABG Sodium VBG pH VBG pCO2 VBG pO2 VBG HCO3 VBG Total CO2 VBG O2 Saturation VBG Base Excess Hemoglobin 10.6 L Hematocrit 31.0 L Potassium 4.3 5.2 H Glucose 139 H 151 H Ionized Calcium FiO2 Sodium 143 Chloride 110 H Carbon Dioxide 26 Anion Gap 11.3 BUN 10 Creatinine 0.80 GFR Calculation 90 BUN/Creatinine Ratio 12.00 POC Glucose Calculated Osmolality 285.0 Calcium 8.4 L Venous Ioniz Calcium Magnesium 1.8 Total Bilirubin 0.40 Direct Bilirubin 0.120 AST 158 H ALT 31 Alkaline Phosphatase 50 Total Creatine Kinase CK-MB (CK-2) CK and CKMB Interp Troponin I Total Protein 5.6 L Albumin 3.5 Globulin 2.1 L Albumin/Globulin Ratio 1.6 Blood Type Antibody Screen Crossmatch Quality Measures - VTE Contraindication to Pharmacological VTE Prophylaxis: High Risk of Bleeding
[2017-03-17] MEDS: CHLORHEXIDINE 0.12% ORAL RINSE 60 ML BOTTLE SWISH/SPIT SCH ×3 (09:42→20:43)
[2017-03-17] MEDS ORDERED: ACETAMINOPHEN 325 MG TABLET PO PRN ×2 (10:35→13:10)
--- NOTE | 2017-03-17 10:46 | XRay Report ---
History is chest tube removal 03/17/2017 at 8:30 AM Comparison with earlier the same day The heart is enlarged. Anterior chest tubes been removed. No pneumothorax seen Minimal patchy and reticular opacities at the lung bases unchanged Impression: Interval chest tube removal otherwise Little change PROCEDURE INTERPRETED AT [facility] DEPARTMENT OF RADIOLOGY Final Report Signed by: Dr. Devorah Colorado
--- NOTE | 2017-03-17 11:57 | XRay Report ---
History is post extubation, chest tube management Comparison 03/16/2017 The ET and NG tubes have been removed. Anterior chest tubes remain. Right central line tip overlies the right atrium No pneumothorax seen. There are slight increasing interstitial markings and hazy opacities at the lung bases without consolidation Impression: 1. Interval extubation 2. Interval development of minimal interstitial edema PROCEDURE INTERPRETED AT [facility] DEPARTMENT OF RADIOLOGY Final Report Signed by: Dr. Devorah [place]
[2017-03-17] MEDS ORDERED: oxyCODONE/ACETAMINOPHEN 5-325 MG TABLET PO PRN (13:10)
[2017-03-17] MEDS ORDERED: MAGNESIUM SULF RIDER 4 GM in PREMIX 1 EACH IV PRN (13:10)
[2017-03-17] MEDS ORDERED: GLUCAGON 1 MG VIAL IM PRN ×2 (13:10)
[2017-03-17] MEDS ORDERED: ALUMINUM/MAGNES/SIMETH MAX STR 30 ML UDCUP PO PRN (13:10)
[2017-03-17] MEDS ORDERED: DEXTROSE 50% 25 GM/50 ML VIAL IV PRN (13:10)
[2017-03-17] MEDS ORDERED: SODIUM CHLOR 0.45% KCL 20 MEQ 20 MEQ/1,000 ML BAG IV SCH (13:10)
[2017-03-17] MEDS ORDERED: MAGNESIUM SULF RIDER 2 GM in PREMIX 1 EACH IV PRN (13:10)
[2017-03-17] MEDS ORDERED: ONDANSETRON 4 MG/2 ML VIAL IV PRN (13:10)
[2017-03-17] MEDS ORDERED: DEXTROSE 50% 25 GM/50 ML SYRINGE IV PRN (13:10)
[2017-03-17] MEDS ORDERED: ZALEPLON 5 MG CAPSULE PO PRN (13:10)
--- NOTE | 2017-03-17 13:24 | Anesthesia Post-Op ---
Anesthesia Post OP - Post Ansesthetic Evaluation Patient seen in post op: Yes Resp: within normal limits CV: within normal limits Mental: within normal limits Temp: within normal limits Aazn-Dl-Mhvjmdoty: within normal limits Nausea and Vomiting: within normal limits Pain: within normal limits Other:: Pt denies recall, denies N/T to extremities
[2017-03-17] MEDS: KETOROLAC 30 MG/1 ML VIAL IV PRN (13:30)
[2017-03-17 14:07] LABS: CKMB % 5.9 %
[2017-03-17 14:09] LABS: Troponin I Only 48.7 NG/ML (0.00-0.045)
[2017-03-17] MEDS: FERROUS SULFATE 325 MG TABLET PO SCH (16:31)
[2017-03-17] MEDS: DOCUSATE SODIUM 100 MG CAPSULE PO SCH (16:32)
[2017-03-17] MEDS ORDERED: AMIODARONE 200 MG TABLET PO ONE (17:43)
[2017-03-17] MEDS ORDERED: AMIODARONE 200 MG TABLET PO SCH (18:00)
[2017-03-17] MEDS: NITROGLYCERIN 0.1 MG/HR PATCH TRANSDERM SCH (18:10)
[2017-03-17] MEDS ORDERED: CEFUROXIME INJ 1,500 MG in SODIUM CHLORIDE 0.9% 100 ML IV ONE (20:00)
[2017-03-17] MEDS: ASPIRIN EC 81 MG TABLET PO SCH (20:40)
[2017-03-17] MEDS: ROSUVASTATIN 20 MG TABLET PO SCH (20:40)
[2017-03-17] MEDS: METOPROLOL SUCCINATE XL 25 MG TABLET PO SCH (20:41)
[2017-03-17] MEDS: PANTOPRAZOLE 40 MG TABLET PO SCH (20:41)
[2017-03-17] MEDS: MAGNESIUM HYDROXIDE SUSP 30 ML UDCUP PO SCH (20:41)
[2017-03-17] MEDS: AMIODARONE 200 MG TABLET PO SCH (20:57)
[2017-03-17] MEDS ORDERED: CEFUROXIME INJ 1,500 MG in SODIUM CHLORIDE 0.9% 50 ML IV ONE (21:30)
[2017-03-18] MEDS: KETOROLAC 30 MG/1 ML VIAL IV SCH ×4 (01:37→21:21)
[2017-03-18 04:33] LABS: Basophils % 0.1 % (0.0-0.8); Hematocrit 26.7 VOL% (35.7-47.0); Hemoglobin 8.8 GM/DL (12.0-16.0); Immature Granulocytes % 0.8 %; Immature Granulocytes Absolute 0.16 #; Lymphocytes # 0.7 10*3/uL (1.4-4.0); Lymphocytes % 3.4 % (21.3-54.2); Mean Corpuscular Hemoglobin 27 PG (27-34); Mean Corpuscular Volume 80.9 FL (87-102); Mean Platelet Volume 12.5 FL (9.6-12.0); Monocytes # 1.2 10*3/uL (0.11-0.8); Monocytes % 6.3 % (1.7-12.7); Neutrophils # 17.3 10*3/uL (1.4-7.4); Neutrophils % 89.4 % (38.7-73.9); Platelet Count 152 T/CUMM (130-400); Red Cell Distribution Width 20.4 % (9.3-17.3); White Blood Count 19.4 T/CUMM (4-12)
[2017-03-18 05:16] LABS: Albumin 3.1 G/DL (3.4-5.0); Bilirubin,Direct 0.12 MG/DL (0.0-0.20); Bilirubin,Indirect 0.4 MG/DL (0.0-1.0); Bilirubin,Total 0.5 MG/DL (0.2-1.0); CKMB % 2.2 %; Calcium 8.5 MG/DL (8.5-10.1); Magnesium 2.9 MG/DL (1.8-2.4); Osmolality,Calculated 289.1 MOS/KG (273-304); Potassium 4.7 MMOL/L (3.5-5.1); Total Protein 5.4 G/DL (6.4-8.3)
[2017-03-18 05:17] LABS: Troponin I Only 16.2 NG/ML (0.00-0.045)
[2017-03-18] MEDS ORDERED: FUROSEMIDE 40 MG/4 ML VIAL IV ONE ×2 (06:00→07:07)
[2017-03-18 07:10] LABS: Band Neutrophils 1 % (0-10); Giant Platelets Few; Hypochromasia 1+; Lymphocytes 1 % (20-55); Microcytosis Slight; Ovalocytes Slight; Platelet Estimate Normal; Segmented Neutrophils 93 % (50-85); Total Cells Counted 100
[2017-03-18] MEDS: ALBUTEROL/IPRATROPIUM 3 ML NEB RESP TX SCH ×3 (08:20→20:41)
--- NOTE | 2017-03-18 08:21 | Cardiothoracic Progress Note ---
Cardiothoracic Subjective Interval history: Patient is awake and alert. She had a fair amount of discomfort during the night and did not sleep well. She has some mild shortness of breath. Laboratory work looks essentially okay. Chest x-ray does show some vascular congestion and there may be a question of a small right pneumothorax but I cannot be sure. It does not look essentially different to me from her film yesterday. Her troponin level has trended down rapidly. Vital signs have been stable. She is going to be diuresed today and we will start some nebulized breathing treatments. If her breathing does not improve as the day goes along we will repeat her chest x-ray later today but otherwise we will continue to try and increase her activity according to routine postoperative protocol. Exam (Progress Note) - Constitutional Vitals: Period Temp Pulse Resp BP Sys/Rubio Pulse Ox Last 24 Hr 96.4 F-99.0 F 71-91 14-22 111-152/42-88 90-100 Result/EKG - Labs CBC & BMP: 03/18/17 02:34 03/18/17 02:34 Labs: Laboratory Results - last 24 hr 03/16/17 03/16/17 03/16/17 20:11 21:10 22:07 WBC RBC Hgb Hct MCV MCH MCHC RDW Plt Count MPV Neut % (Auto) Lymph % (Auto) [place] % (Auto) Eos % (Auto) Baso % (Auto) Neut # (Auto) Lymph # (Auto) [place] # (Auto) Eos # (Auto) Baso # (Auto) Total Counted Immature Gran % Nucleated RBC % Immature Gran # Segmented Neutrophils Band Neutrophils Lymphocytes Monocytes Nucleated RBCs # Platelet Estimate Giant Platelets Immature Plt Fraction Hypochromasia Microcytosis Ovalocytes Sodium Potassium Chloride Carbon Dioxide Anion Gap BUN Creatinine GFR Calculation BUN/Creatinine Ratio Glucose POC Glucose 192 H 209 H 186 H Calculated Osmolality Calcium Magnesium Total Bilirubin Direct Bilirubin Indirect Bilirubin AST ALT Alkaline Phosphatase Total Creatine Kinase CK-MB (CK-2) CK and CKMB Interp Troponin I Total Protein Albumin Globulin Albumin/Globulin Ratio 03/17/17 03/17/17 03/17/17 00:08 01:08 02:04 WBC RBC Hgb Hct MCV MCH MCHC RDW Plt Count MPV Neut % (Auto) Lymph % (Auto) [place] % (Auto) Eos % (Auto) Baso % (Auto) Neut # (Auto) Lymph # (Auto) [place] # (Auto) Eos # (Auto) Baso # (Auto) Total Counted Immature Gran % Nucleated RBC % Immature Gran # Segmented Neutrophils Band Neutrophils Lymphocytes Monocytes Nucleated RBCs # Platelet Estimate Giant Platelets Immature Plt Fraction Hypochromasia Microcytosis Ovalocytes Sodium Potassium Chloride Carbon Dioxide Anion Gap BUN Creatinine GFR Calculation BUN/Creatinine Ratio Glucose POC Glucose 135 H 130 H 117 H Calculated Osmolality Calcium Magnesium Total Bilirubin Direct Bilirubin Indirect Bilirubin AST ALT Alkaline Phosphatase Total Creatine Kinase CK-MB (CK-2) CK and CKMB Interp Troponin I Total Protein Albumin Globulin Albumin/Globulin Ratio 03/17/17 03/17/17 03/17/17 04:06 09:51 11:41 WBC RBC Hgb Hct MCV MCH MCHC RDW Plt Count MPV Neut % (Auto) Lymph % (Auto) [place] % (Auto) Eos % (Auto) Baso % (Auto) Neut # (Auto) Lymph # (Auto) [place] # (Auto) Eos # (Auto) Baso # (Auto) Total Counted Immature Gran % Nucleated RBC % Immature Gran # Segmented Neutrophils Band Neutrophils Lymphocytes Monocytes Nucleated RBCs # Platelet Estimate Giant Platelets Immature Plt Fraction Hypochromasia Microcytosis Ovalocytes Sodium Potassium Chloride Carbon Dioxide Anion Gap BUN Creatinine GFR Calculation BUN/Creatinine Ratio Glucose POC Glucose 175 H 129 H 142 H Calculated Osmolality Calcium Magnesium Total Bilirubin Direct Bilirubin Indirect Bilirubin AST ALT Alkaline Phosphatase Total Creatine Kinase CK-MB (CK-2) CK and CKMB Interp Troponin I Total Protein Albumin Globulin Albumin/Globulin Ratio 03/17/17 03/17/17 03/17/17 12:45 15:16 23:38 WBC RBC Hgb Hct MCV MCH MCHC RDW Plt Count MPV Neut % (Auto) Lymph % (Auto) [place] % (Auto) Eos % (Auto) Baso % (Auto) Neut # (Auto) Lymph # (Auto) [place] # (Auto) Eos # (Auto) Baso # (Auto) Total Counted Immature Gran % Nucleated RBC % Immature Gran # Segmented Neutrophils Band Neutrophils Lymphocytes Monocytes Nucleated RBCs # Platelet Estimate Giant Platelets Immature Plt Fraction Hypochromasia Microcytosis Ovalocytes Sodium Potassium Chloride Carbon Dioxide Anion Gap BUN Creatinine GFR Calculation BUN/Creatinine Ratio Glucose POC Glucose 193 H 177 H Calculated Osmolality Calcium Magnesium Total Bilirubin Direct Bilirubin Indirect Bilirubin AST ALT Alkaline Phosphatase Total Creatine Kinase 2291 H D CK-MB (CK-2) 134.8 H D CK and CKMB Interp 5.9 Troponin I 48.700 H D Total Protein Albumin Globulin Albumin/Globulin Ratio 03/18/17 03/18/17 03/18/17 02:34 02:34 04:43 WBC 19.4 H RBC 3.30 L Hgb 8.8 L Hct 26.7 L MCV 80.9 L MCH 27 MCHC 33.0 RDW 20.4 H Plt Count 152 MPV 12.5 H Neut % (Auto) 89.4 H Lymph % (Auto) 3.4 L [place] % (Auto) 6.3 Eos % (Auto) 0.0 Baso % (Auto) 0.1 Neut # (Auto) 17.3 H Lymph # (Auto) 0.7 L [place] # (Auto) 1.2 H Eos # (Auto) 0.0 Baso # (Auto) 0.0 Total Counted 100 Immature Gran % 0.8 Nucleated RBC % 0.0 Immature Gran # 0.16 Segmented Neutrophils 93 H Band Neutrophils 1 Lymphocytes 1 L Monocytes 5 Nucleated RBCs # 0.00 Platelet Estimate Normal Giant Platelets Few Immature Plt Fraction 0.0 Hypochromasia 1+ Microcytosis Slight Ovalocytes Slight Sodium 142 Potassium 4.7 Chloride 106 Carbon Dioxide 31 Anion Gap 9.7 BUN 22 H D Creatinine 0.80 GFR Calculation 91 BUN/Creatinine Ratio 27.00 H Glucose 166 H POC Glucose 199 H Calculated Osmolality 289.1 Calcium 8.5 Magnesium 2.9 H Total Bilirubin 0.50 Direct Bilirubin 0.120 Indirect Bilirubin 0.4 AST 162 H ALT 44 Alkaline Phosphatase 63 Total Creatine Kinase 1677 H D CK-MB (CK-2) 36.5 H D CK and CKMB Interp 2.2 Troponin I 16.200 H D Total Protein 5.4 L Albumin 3.1 L Globulin 2.3 Albumin/Globulin Ratio 1.3 03/18/17 07:40 WBC RBC Hgb Hct MCV MCH MCHC RDW Plt Count MPV Neut % (Auto) Lymph % (Auto) [place] % (Auto) Eos % (Auto) Baso % (Auto) Neut # (Auto) Lymph # (Auto) [place] # (Auto) Eos # (Auto) Baso # (Auto) Total Counted Immature Gran % Nucleated RBC % Immature Gran # Segmented Neutrophils Band Neutrophils Lymphocytes Monocytes Nucleated RBCs # Platelet Estimate Giant Platelets Immature Plt Fraction Hypochromasia Microcytosis Ovalocytes Sodium Potassium Chloride Carbon Dioxide Anion Gap BUN Creatinine GFR Calculation BUN/Creatinine Ratio Glucose POC Glucose 166 H Calculated Osmolality Calcium Magnesium Total Bilirubin Direct Bilirubin Indirect Bilirubin AST ALT Alkaline Phosphatase Total Creatine Kinase CK-MB (CK-2) CK and CKMB Interp Troponin I Total Protein Albumin Globulin Albumin/Globulin Ratio Quality Measures - VTE Contraindication to Pharmacological VTE Prophylaxis: High Risk of Bleeding
[2017-03-18] MEDS: DOCUSATE SODIUM 100 MG CAPSULE PO SCH (08:40)
[2017-03-18] MEDS: FERROUS SULFATE 325 MG TABLET PO SCH (08:40)
[2017-03-18] MEDS: AMIODARONE 200 MG TABLET PO SCH ×2 (08:40→21:19)
[2017-03-18] MEDS: NITROGLYCERIN 0.1 MG/HR PATCH TRANSDERM SCH (08:40)
[2017-03-18] MEDS: CHLORHEXIDINE 0.12% ORAL RINSE 60 ML BOTTLE SWISH/SPIT SCH ×2 (08:50→21:21)
[2017-03-18] MEDS: MAGNESIUM HYDROXIDE SUSP 30 ML UDCUP PO PRN (10:26)
[2017-03-18] MEDS: MORPHINE 2 MG/1 ML SYRINGE IV PRN ×2 (10:32→15:15)
--- NOTE | 2017-03-18 11:44 | XRay Report ---
Portable chest Exam date: 03/18/2017. 513 AM Indication: Shortness of breath, cough Comparison: Previous day 0825 hours Findings: Cardiomediastinal contours are stable with sternotomy wires and midline and no change in central venous catheter placement. Slightly increased bibasilar atelectasis and effusions. No acute osseous abnormalities. Visualized upper abdomen demonstrates no acute pathology. Impression: Slightly worsened pleural effusions and bibasilar atelectasis PROCEDURE INTERPRETED AT [facility] DEPARTMENT OF RADIOLOGY Final Report Signed by: Sudeep Aguilera
--- NOTE | 2017-03-18 12:36 | XRay Report ---
Portable chest Exam date: 03/18/2017 11:50 AM Indication: Shortness of breath, cough Comparison: Same date at 0513 hours Findings: Cardiomediastinal contours are stable. Tubes and lines are unchanged. Bilateral pleural effusions and compressive atelectasis overall stable. No acute osseous abnormalities. Visualized upper abdomen demonstrates no acute pathology. Impression: No interval change in the appearance the chest in the 6 hours since prior study PROCEDURE INTERPRETED AT [facility] DEPARTMENT OF RADIOLOGY Final Report Signed by: Sudeep Aguilera
[2017-03-18] MEDS ORDERED: CLORAZEPATE 3.75 MG TABLET PO ONE (16:19)
[2017-03-18 16:52] LABS: ABG Base Excess 6.2 MMOL/L (-2.5-2.5); ABG HCO3 31.7 MMOL/L (20-26); ABG Oxygen Saturation 91.3 % (95-100); ABG PCO2 51.1 MM HG (35-48); ABG PH 7.411 (7.35-7.45); ABG PO2 60.2 MM HG (80-95); ABG TCO2 33.3 MMOL/L (23-27)
[2017-03-18] MEDS ORDERED: oxyCODONE/ACETAMINOPHEN 5-325 MG TABLET PO PRN (17:24)
[2017-03-18] MEDS ORDERED: MIDAZOLAM 2 MG/2 ML VIAL ONE (17:26)
[2017-03-18] MEDS ORDERED: MIDAZOLAM 2 MG/2 ML VIAL IV ONE (17:30)
[2017-03-18] MEDS ORDERED: AMIODARONE 200 MG TABLET PO ONE (17:43)
--- NOTE | 2017-03-18 18:59 | XRay Report ---
Portable chest Exam date: 03/18/2017 5:41 PM Indication: Shortness of breath, cough tube placement Comparison: Same day at 1145 hours Findings: Cardiomediastinal contours are stable with sternotomy wires and midline no change in central venous catheter placement. In retrospect, slow developing right pneumothorax about 220% of lung volume at the time of the 11:55 AM study. Right-sided chest tube is now been placed with the right lung well expanded along the chest wall. There is again prominence of the central vasculature with slightly worsening hazy pleural and parenchymal opacities throughout the left lung base and slight improved aeration on the right. No acute osseous abnormalities. Visualized upper abdomen demonstrates no acute pathology. Impression: 1. Interval right chest tube placement with resolution of the right pneumothorax 2. Central pulmonary venous congestion with slight progression of the atelectasis and effusion on the left with improving aeration of the right lung base PROCEDURE INTERPRETED AT [facility] DEPARTMENT OF RADIOLOGY Final Report Signed by: Sudeep Aguilera
[2017-03-18] MEDS: HYDROmorphone 2 MG/1 ML VIAL IV PRN (19:40)
[2017-03-18] MEDS: METOPROLOL SUCCINATE XL 25 MG TABLET PO SCH (21:19)
[2017-03-18] MEDS: ASPIRIN EC 81 MG TABLET PO SCH (21:19)
[2017-03-18] MEDS: PANTOPRAZOLE 40 MG TABLET PO SCH (21:20)
[2017-03-18] MEDS: ROSUVASTATIN 20 MG TABLET PO SCH (21:20)
[2017-03-18] MEDS: MAGNESIUM HYDROXIDE SUSP 30 ML UDCUP PO SCH (21:21)
[2017-03-19] MEDS: KETOROLAC 30 MG/1 ML VIAL IV SCH ×5 (01:21→18:18)
[2017-03-19 02:27] LABS: ABG Base Excess 6.6 MMOL/L (-2.5-2.5); ABG HCO3 30.3 MMOL/L (20-26); ABG Oxygen Saturation 91.4 % (95-100); ABG PCO2 41.7 MM HG (35-48); ABG PH 7.475 (7.35-7.45); ABG TCO2 28.5 MMOL/L (23-27); Allen Test Positive
[2017-03-19] MEDS: ALBUTEROL/IPRATROPIUM 3 ML NEB RESP TX SCH ×5 (02:55→19:14)
[2017-03-19 02:59] LABS: Eosinophils % 0.2 % (0.00-10.9); Hematocrit 25.1 VOL% (35.7-47.0); Hemoglobin 8.3 GM/DL (12.0-16.0); Immature Granulocytes % 0.4 %; Immature Granulocytes Absolute 0.05 #; Lymphocytes # 1.2 10*3/uL (1.4-4.0); Lymphocytes % 11.1 % (21.3-54.2); Mean Corpuscular HGB Conc 33.1 GM/DL (32-36); Mean Corpuscular Hemoglobin 26 PG (27-34); Mean Corpuscular Volume 79.9 FL (87-102); Mean Platelet Volume 12.6 FL (9.6-12.0); Monocytes # 1.1 10*3/uL (0.11-0.8); Monocytes % 9.4 % (1.7-12.7); Neutrophils # 8.8 10*3/uL (1.4-7.4); Neutrophils % 78.9 % (38.7-73.9); Platelet Count 160 T/CUMM (130-400); Red Blood Count 3.14 MC/CUMM (3.8-5.5); Red Cell Distribution Width 20.6 % (9.3-17.3); White Blood Count 11.1 T/CUMM (4-12)
[2017-03-19] MEDS ORDERED: SODIUM CHLORIDE 0.9% 250 ML IV PRN (03:19)
[2017-03-19 03:30] LABS: Band Neutrophils 2 % (0-10); Lymphocytes 16 % (20-55); Segmented Neutrophils 78 % (50-85)
[2017-03-19 03:31] LABS: Elliptocytes 2+; Hypochromasia 2+; Platelet Estimate Normal
[2017-03-19 03:32] LABS: Total Cells Counted 100
[2017-03-19] MEDS: INSULIN REGULAR DRIP 100 ML IV SCH (03:42)
[2017-03-19 03:49] LABS: Alanine Aminotransferase 40 U/L (13-56); Albumin 2.9 G/DL (3.4-5.0); Alkaline Phosphatase 66 U/L (45-117); Aspartate Amino Transferase 90 U/L (0-37); Bilirubin,Indirect 0.3 MG/DL (0.0-1.0); Blood Urea Nitrogen 24 MG/DL (7-18); Calcium 8.1 MG/DL (8.5-10.1); Glucose 124 MG/DL (74-106); Magnesium 2.9 MG/DL (1.8-2.4); Osmolality,Calculated 283.4 MOS/KG (273-304); Potassium 4.4 MMOL/L (3.5-5.1); Sodium 140 MMOL/L (136-145); Total Protein 5.4 G/DL (6.4-8.3)
[2017-03-19] MEDS: HYDROmorphone 2 MG/1 ML VIAL IV PRN ×3 (04:21→21:23)
--- NOTE | 2017-03-19 07:32 | XRay Report ---
History: Shortness of breath Date: 03/19/2017 Study: Chest x-ray AP portable Comparison exam: 03/18/2017 The chest tube over the right hemithorax is in stable satisfactory position. No pneumothorax is seen on the right. The right IJ central line is positioned with its tip over the right atrium as before. There is stable cardiomegaly. The mediastinal contours are unchanged in this patient status post prior median sternotomy. There is some continued hazy pulmonary edema and atelectasis in the mid to lower lungs, grossly similar. There is continued mild bilateral pleural effusion. Osseous structures are unchanged. Impression: No adverse interval change compared to the comparison study. No evidence of a pneumothorax. Stable positioning of the supporting tubes. Continued pulmonary edema and atelectasis in the lower lungs PROCEDURE INTERPRETED AT [facility] DEPARTMENT OF RADIOLOGY Final Report Signed by: Dr. Lina Barnes
[2017-03-19] MEDS ORDERED: FUROSEMIDE 40 MG/4 ML VIAL IV ONE ×2 (08:00→15:00)
--- NOTE | 2017-03-19 08:06 | Cardiothoracic Progress Note ---
Cardiothoracic Subjective Interval history: Patient looks and feels much better this morning. Her vital signs have been stable and she is breathing comfortably and her O2 sat is 95%. Her arterial blood gases this morning still show some degree of hypoxemia with a PO2 of 60 but her PCO2 is back down to normal. Chest x-ray does show some pulmonary vascular congestion but no evidence of pneumothorax. Laboratory work is basically within normal limits with a troponin which is trending down fairly rapidly. Hematocrit is 25% this morning and I am going to transfuse 2 units of packed red blood cells. We are also going to diuresis today and I think it best to keep her in intensive care for another 24 hours. Overall her progress is satisfactory. Exam (Progress Note) - Constitutional Vitals: Period Temp Pulse Resp BP Sys/Rubio Pulse Ox Last 24 Hr 97.3 F-99.7 F 71-97 8-34 91-160/58-93 88-99 Result/EKG - Labs CBC & BMP: 03/19/17 02:50 03/19/17 02:50 Labs: Laboratory Results - last 24 hr 03/15/17 03/18/17 03/18/17 09:54 11:36 16:05 WBC RBC Hgb Hct MCV MCH MCHC RDW Plt Count MPV Neut % (Auto) Lymph % (Auto) [place] % (Auto) Eos % (Auto) Baso % (Auto) Neut # (Auto) Lymph # (Auto) [place] # (Auto) Eos # (Auto) Baso # (Auto) Total Counted Immature Gran % Nucleated RBC % Immature Gran # Segmented Neutrophils Band Neutrophils Lymphocytes Monocytes Nucleated RBCs # Platelet Estimate Immature Plt Fraction Hypochromasia Elliptocytes ABG pH ABG pCO2 ABG pO2 ABG HCO3 ABG Total CO2 ABG O2 Saturation ABG Base Excess FiO2 Sodium Potassium Chloride Carbon Dioxide Anion Gap BUN Creatinine GFR Calculation BUN/Creatinine Ratio Glucose POC Glucose 182 H 166 H Calculated Osmolality Calcium Magnesium Total Bilirubin Direct Bilirubin Indirect Bilirubin AST ALT Alkaline Phosphatase Total Creatine Kinase CK-MB (CK-2) Troponin I Total Protein Albumin Globulin Albumin/Globulin Ratio Blood Type Antibody Screen Crossmatch See Detail 03/18/17 03/18/17 03/19/17 16:40 19:46 02:20 WBC RBC Hgb Hct MCV MCH MCHC RDW Plt Count MPV Neut % (Auto) Lymph % (Auto) [place] % (Auto) Eos % (Auto) Baso % (Auto) Neut # (Auto) Lymph # (Auto) [place] # (Auto) Eos # (Auto) Baso # (Auto) Total Counted Immature Gran % Nucleated RBC % Immature Gran # Segmented Neutrophils Band Neutrophils Lymphocytes Monocytes Nucleated RBCs # Platelet Estimate Immature Plt Fraction Hypochromasia Elliptocytes ABG pH 7.411 7.475 H ABG pCO2 51.1 H 41.7 ABG pO2 60.2 L 60.0 L ABG HCO3 31.7 H 30.3 H ABG Total CO2 33.3 H 28.5 H ABG O2 Saturation 91.3 L 91.4 L ABG Base Excess 6.2 H 6.6 H FiO2 80.00 Sodium Potassium Chloride Carbon Dioxide Anion Gap BUN Creatinine GFR Calculation BUN/Creatinine Ratio Glucose POC Glucose 150 H Calculated Osmolality Calcium Magnesium Total Bilirubin Direct Bilirubin Indirect Bilirubin AST ALT Alkaline Phosphatase Total Creatine Kinase CK-MB (CK-2) Troponin I Total Protein Albumin Globulin Albumin/Globulin Ratio Blood Type Antibody Screen Crossmatch 03/19/17 03/19/17 03/19/17 02:50 02:50 03:31 WBC 11.1 D RBC 3.14 L Hgb 8.3 L Hct 25.1 L MCV 79.9 L MCH 26 L MCHC 33.1 RDW 20.6 H Plt Count 160 MPV 12.6 H Neut % (Auto) 78.9 H Lymph % (Auto) 11.1 L [place] % (Auto) 9.4 Eos % (Auto) 0.2 Baso % (Auto) 0.0 Neut # (Auto) 8.8 H Lymph # (Auto) 1.2 L [place] # (Auto) 1.1 H Eos # (Auto) 0.0 Baso # (Auto) 0.0 Total Counted 100 Immature Gran % 0.4 Nucleated RBC % 0.0 Immature Gran # 0.05 Segmented Neutrophils 78 Band Neutrophils 2 Lymphocytes 16 L Monocytes 4 Nucleated RBCs # 0.00 Platelet Estimate Normal Immature Plt Fraction 0.0 Hypochromasia 2+ Elliptocytes 2+ ABG pH ABG pCO2 ABG pO2 ABG HCO3 ABG Total CO2 ABG O2 Saturation ABG Base Excess FiO2 Sodium 140 Potassium 4.4 Chloride 102 Carbon Dioxide 35 H Anion Gap 7.4 BUN 24 H Creatinine 0.90 GFR Calculation 78 BUN/Creatinine Ratio 26.00 H Glucose 124 H POC Glucose Calculated Osmolality 283.4 Calcium 8.1 L Magnesium 2.9 H Total Bilirubin 0.40 Direct Bilirubin 0.100 Indirect Bilirubin 0.3 AST 90 H ALT 40 Alkaline Phosphatase 66 Total Creatine Kinase 1022 H D CK-MB (CK-2) 4.9 H D Troponin I 10.900 H D Total Protein 5.4 L Albumin 2.9 L Globulin 2.5 Albumin/Globulin Ratio 1.1 Blood Type A POSITIVE Antibody Screen Negative Crossmatch See Detail 03/19/17 07:27 WBC RBC Hgb Hct MCV MCH MCHC RDW Plt Count MPV Neut % (Auto) Lymph % (Auto) [place] % (Auto) Eos % (Auto) Baso % (Auto) Neut # (Auto) Lymph # (Auto) [place] # (Auto) Eos # (Auto) Baso # (Auto) Total Counted Immature Gran % Nucleated RBC % Immature Gran # Segmented Neutrophils Band Neutrophils Lymphocytes Monocytes Nucleated RBCs # Platelet Estimate Immature Plt Fraction Hypochromasia Elliptocytes ABG pH ABG pCO2 ABG pO2 ABG HCO3 ABG Total CO2 ABG O2 Saturation ABG Base Excess FiO2 Sodium Potassium Chloride Carbon Dioxide Anion Gap BUN Creatinine GFR Calculation BUN/Creatinine Ratio Glucose POC Glucose 149 H Calculated Osmolality Calcium Magnesium Total Bilirubin Direct Bilirubin Indirect Bilirubin AST ALT Alkaline Phosphatase Total Creatine Kinase CK-MB (CK-2) Troponin I Total Protein Albumin Globulin Albumin/Globulin Ratio Blood Type Antibody Screen Crossmatch Quality Measures - VTE Contraindication to Pharmacological VTE Prophylaxis: High Risk of Bleeding Specialty Discharge - Follow Up or Referrals
[2017-03-19] MEDS: POTASSIUM CHLORIDE 20 MEQ TABLET PO PRN (09:15)
[2017-03-19] MEDS: FERROUS SULFATE 325 MG TABLET PO SCH (09:15)
[2017-03-19] MEDS: DOCUSATE SODIUM 100 MG CAPSULE PO SCH (09:15)
[2017-03-19] MEDS: AMIODARONE 200 MG TABLET PO SCH ×2 (09:16→21:20)
[2017-03-19] MEDS: CHLORHEXIDINE 0.12% ORAL RINSE 60 ML BOTTLE SWISH/SPIT SCH ×2 (09:18→21:27)
[2017-03-19] MEDS: NITROGLYCERIN 0.1 MG/HR PATCH TRANSDERM SCH (09:18)
[2017-03-19] MEDS: CEFEPIME 1,000 MG in SODIUM CHLORIDE 0.9% 50 ML IV SCH ×2 (09:20→21:39)
[2017-03-19] MEDS: SODIUM CHLORIDE 0.45% 1,000 ML IV SCH ×2 (11:07)
[2017-03-19] MEDS: INSULIN REGULAR 100 UNIT/ML SUBCUT SCH (11:08)
[2017-03-19 19:19] LABS: Apearance,Urine CLEAR (Clear); Bilirubin,Urine Negative (Negative); Blood, Urine Negative (Negative); Glucose,Urine (UA) Negative (Negative); Granular Casts,Urine 1 /LPF (0-1); Hyaline Casts,Urine 1 /LPF (0-3); Ketones,Urine Negative (Negative); Mucus,Urine Occasional /LPF (Occasional); Nitrite,Urine Negative (Negative); Protein,Urine Negative; RBC,Urine 1 /HPF (0-4); Urine Color Yellow (Yellow); Urine Specific Gravity 1.021 (1.001-1.035); Urine Urobilinogen < 2.0 EU/DL (0.2-1.0); WBC,Urine <1 /HPF (0-6)
[2017-03-19] MEDS: PANTOPRAZOLE 40 MG TABLET PO SCH (21:18)
[2017-03-19] MEDS: METOPROLOL SUCCINATE XL 25 MG TABLET PO SCH (21:19)
[2017-03-19] MEDS: ASPIRIN EC 81 MG TABLET PO SCH (21:19)
[2017-03-19] MEDS: ROSUVASTATIN 20 MG TABLET PO SCH (21:19)
[2017-03-19] MEDS: MAGNESIUM HYDROXIDE SUSP 30 ML UDCUP PO SCH (21:22)
[2017-03-20] MEDS: KETOROLAC 30 MG/1 ML VIAL IV SCH ×2 (01:36→06:37)
[2017-03-20 04:00] LABS: ABG Base Excess 4.4 MMOL/L (-2.5-2.5); ABG HCO3 27.6 MMOL/L (20-26); ABG PCO2 36.1 MM HG (35-48); ABG PH 7.501 (7.35-7.45); ABG PO2 43.6 MM HG (80-95); ABG TCO2 28.7 MMOL/L (23-27); Allen Test Positive
[2017-03-20 05:20] LABS: Basophils % 0.2 % (0.0-0.8); Eosinophils # 0.3 10*3/uL (0.0-0.87); Immature Granulocytes % 0.7 %; Immature Granulocytes Absolute 0.08 #; Lymphocytes # 1.4 10*3/uL (1.4-4.0); Lymphocytes % 11.2 % (21.3-54.2); Mean Corpuscular HGB Conc 33.8 GM/DL (32-36); Mean Corpuscular Hemoglobin 28 PG (27-34); Mean Corpuscular Volume 82.9 FL (87-102); Mean Platelet Volume 11.9 FL (9.6-12.0); Monocytes # 1.2 10*3/uL (0.11-0.8); Monocytes % 9.8 % (1.7-12.7); Neutrophils # 9.3 10*3/uL (1.4-7.4); Neutrophils % 76.1 % (38.7-73.9); Platelet Count 188 T/CUMM (130-400); Red Cell Distribution Width 19.5 % (9.3-17.3); White Blood Count 12.2 T/CUMM (4-12)
[2017-03-20 05:29] LABS: Hemoglobin 11.5 GM/DL (12.0-16.0)
[2017-03-20 05:32] LABS: Albumin 2.7 G/DL (3.4-5.0); Bilirubin,Total 0.5 MG/DL (0.2-1.0); Calcium 8.2 MG/DL (8.5-10.1); Osmolality,Calculated 281.4 MOS/KG (273-304); Potassium 4.2 MMOL/L (3.5-5.1); Total Protein 5.7 G/DL (6.4-8.3)
--- NOTE | 2017-03-20 05:55 | Cardiothoracic Progress Note ---
Cardiothoracic Subjective Interval history: Patient is awake alert and extubated. Her heart rate and blood pressure have been stable and renal function is normal and urine output has been good in response to Lasix yesterday. Her chest x-ray, if anything, looks somewhat better to me than it did yesterday. Nevertheless her O2 sats have remained in the high 80s and low 90s and her PO2 this morning on nasal O2 is only 43. Is unclear to me why she is so hypoxemic. On further questioning patient claims to have fairly poor sleep patterns. She wakes up continuously through the night and apparently has a problem with snoring very loudly. I suspect that she may have a component of sleep apnea but are not sure that fully explains the level of hypoxemia we are seeing. We will ask for pulmonary consultation and also for consultation from the sleep apnea service. She may need further diuresis and steroid therapy but I am going to defer to consultants for these decisions. For now we will keep her in intensive care and switch to mask O2 in an effort to raise her PO2 some. Exam (Progress Note) - Constitutional Vitals: Period Temp Pulse Resp BP Sys/Rubio Pulse Ox Last 24 Hr 97.2 F-99.7 F 78-95 18-33 83-148/52-89 31-98 Result/EKG - Labs CBC & BMP: 03/20/17 04:58 03/20/17 04:58 Labs: Laboratory Results - last 24 hr 03/19/17 03/19/17 03/19/17 03:31 07:27 12:22 WBC RBC Hgb Hct MCV MCH MCHC RDW Plt Count MPV Neut % (Auto) Lymph % (Auto) [place] % (Auto) Eos % (Auto) Baso % (Auto) Neut # (Auto) Lymph # (Auto) [place] # (Auto) Eos # (Auto) Baso # (Auto) Immature Gran % Nucleated RBC % Immature Gran # Nucleated RBCs # Immature Plt Fraction ABG pH ABG pCO2 ABG pO2 ABG HCO3 ABG Total CO2 ABG O2 Saturation ABG Base Excess FiO2 Sodium Potassium Chloride Carbon Dioxide Anion Gap BUN Creatinine GFR Calculation BUN/Creatinine Ratio Glucose POC Glucose 149 H 139 H Calculated Osmolality Calcium Total Bilirubin AST ALT Alkaline Phosphatase Total Protein Albumin Globulin Albumin/Globulin Ratio Urine Color Urine Appearance Urine pH Ur Specific [place] Urine Protein Urine Glucose (UA) Urine Ketones Urine Blood Urine Nitrate Urine Bilirubin Urine Urobilinogen Urine Leukocytes Urine RBC Urine WBC Hyaline Casts Granular Casts Urine Mucus Ur Culture Indicated? Blood Type A POSITIVE Antibody Screen Negative Crossmatch See Detail 03/19/17 03/19/17 03/19/17 16:04 22:34 Unknown WBC RBC Hgb Hct MCV MCH MCHC RDW Plt Count MPV Neut % (Auto) Lymph % (Auto) [place] % (Auto) Eos % (Auto) Baso % (Auto) Neut # (Auto) Lymph # (Auto) [place] # (Auto) Eos # (Auto) Baso # (Auto) Immature Gran % Nucleated RBC % Immature Gran # Nucleated RBCs # Immature Plt Fraction ABG pH ABG pCO2 ABG pO2 ABG HCO3 ABG Total CO2 ABG O2 Saturation ABG Base Excess FiO2 Sodium Potassium Chloride Carbon Dioxide Anion Gap BUN Creatinine GFR Calculation BUN/Creatinine Ratio Glucose POC Glucose 179 H 138 H Calculated Osmolality Calcium Total Bilirubin AST ALT Alkaline Phosphatase Total Protein Albumin Globulin Albumin/Globulin Ratio Urine Color Yellow Urine Appearance Clear Urine pH 6.0 Ur Specific [place] 1.021 Urine Protein Negative Urine Glucose (UA) Negative Urine Ketones Negative Urine Blood Negative Urine Nitrate Negative Urine Bilirubin Negative Urine Urobilinogen < 2.0 H Urine Leukocytes Negative Urine RBC 1 Urine WBC <1 Hyaline Casts 1 Granular Casts 1 Urine Mucus Occasional Ur Culture Indicated? Not indicated Blood Type Antibody Screen Crossmatch 03/20/17 03/20/17 03/20/17 04:58 04:58 Unknown WBC 12.2 H RBC 4.10 D Hgb 11.5 L D Hct 34.0 L MCV 82.9 L MCH 28 MCHC 33.8 RDW 19.5 H Plt Count 188 MPV 11.9 Neut % (Auto) 76.1 H Lymph % (Auto) 11.2 L [place] % (Auto) 9.8 Eos % (Auto) 2.0 Baso % (Auto) 0.2 Neut # (Auto) 9.3 H Lymph # (Auto) 1.4 [place] # (Auto) 1.2 H Eos # (Auto) 0.3 Baso # (Auto) 0.0 Immature Gran % 0.7 Nucleated RBC % 0.0 Immature Gran # 0.08 Nucleated RBCs # 0.00 Immature Plt Fraction 0.0 ABG pH 7.501 H ABG pCO2 36.1 ABG pO2 43.6 L ABG HCO3 27.6 H ABG Total CO2 28.7 H ABG O2 Saturation 86.0 L ABG Base Excess 4.4 H FiO2 40.00 Sodium 140 Potassium 4.2 Chloride 104 Carbon Dioxide 32 Anion Gap 8.2 BUN 17 Creatinine 0.70 GFR Calculation 107 BUN/Creatinine Ratio 24.00 H Glucose 121 H POC Glucose Calculated Osmolality 281.4 Calcium 8.2 L Total Bilirubin 0.50 AST 59 H ALT 38 Alkaline Phosphatase 78 Total Protein 5.7 L Albumin 2.7 L Globulin 3.0 Albumin/Globulin Ratio 0.9 L Urine Color Urine Appearance Urine pH Ur Specific [place] Urine Protein Urine Glucose (UA) Urine Ketones Urine Blood Urine Nitrate Urine Bilirubin Urine Urobilinogen Urine Leukocytes Urine RBC Urine WBC Hyaline Casts Granular Casts Urine Mucus Ur Culture Indicated? Blood Type Antibody Screen Crossmatch Quality Measures - VTE Contraindication to Pharmacological VTE Prophylaxis: High Risk of Bleeding Specialty Discharge - Follow Up or Referrals
[2017-03-20 06:00] LABS: Hypochromasia Slight; Macrocytosis 1+; Ovalocytes 1+; Platelet Estimate Normal
[2017-03-20] MEDS: ALBUTEROL/IPRATROPIUM 3 ML NEB RESP TX SCH ×3 (07:42→19:39)
--- NOTE | 2017-03-20 08:06 | XRay Report ---
History: Shortness of breath Date: 03/20/2017 Study: Chest x-ray AP portable Comparison exam: 03/19/2017 The right chest tube is in stable satisfactory position. The right IJ central line is unchanged. There is no pneumothorax. There is continued cardiomegaly. The mediastinal contours are stable in this patient status post prior median sternotomy. There is some continued hazy and strandy atelectasis and possible pulmonary edema in the mid to lower lungs bilaterally, the same to slightly improved. There is mild bilateral pleural effusion. Osseous structures are unchanged. Impression: Continued bibasilar atelectasis and pulmonary edema, perhaps slightly improved. No interval worsening. PROCEDURE INTERPRETED AT [facility] DEPARTMENT OF RADIOLOGY Final Report Signed by: Dr. Lina Barnes
[2017-03-20] MEDS ORDERED: FUROSEMIDE 40 MG/4 ML VIAL IV ONE (08:29)
--- NOTE | 2017-03-20 08:33 | Pulmonology Progress Note ---
Pulmonary - PN: Subj Interval history: This 71-year-old black female had coronary bypass surgery 4 days ago. She was doing well postoperatively but developed a right pneumothorax. She now has right chest tube in place but has remained hypoxemic. She is a non-smoker does not have any previously known lung disease. He is coughing up a little phlegm. She has not had fever. Her weight is up 3 kg from admission. She does have peripheral edema. I do not see an air leak from her chest tube present. Her chest x-ray shows some basilar atelectasis and small left pleural effusion. Exam (Progress Note) - Constitutional Vitals: Period Temp Pulse Resp BP Sys/Rubio Pulse Ox Last 24 Hr 97.2 F-99.7 F 78-95 18-33 83-148/52-89 31-96 Results - Labs CBC & BMP: 03/20/17 04:58 03/20/17 04:58 Specialty Discharge - Follow Up or Referrals
--- NOTE | 2017-03-20 08:36 | Pulmonology Consult Note ---
Assessment and Plan (1) Postoperative atelectasis Status: Acute Assessment and plan: Think this is the main cause of her hypoxemia. Will add Pulmozyme and use Acapella chest PT. Current Visit: Yes (2) Pneumothorax, right Status: Acute Assessment and plan: Chest tube in good position. I do not see any air leak at present. Current Visit: Yes (3) Atherosclerotic cardiovascular disease Status: Acute Assessment and plan: Status post coronary bypass surgery. Troponins went up postoperatively as one would expect. She had normal LV function prior to surgery. There may be an element of congestive heart failure or fluid overload at present. I will diurese her and check a BNP. Her weight is up 3 kg from admission weight. Current Visit: Yes (4) Postoperative hypoxemia Status: Acute Assessment and plan: This is multifactorial due to atelectasis possible fluid overload and pain from splinting from the pneumothorax and chest tube. At present she has an acceptable O2 sat on 5 L. We will leave her on that. If we have to increase oxygen I would use nebulized oxygen as she did not tolerate the dry oxygen flow of the Ventimask earlier. Current Visit: Yes History of Present Illness Chief complaint: Hypoxemia History of present illness: Ms. Mcbride is a 71 year old female who had coronary bypass surgery 4 days ago. She had normal LV ejection fraction prior to the surgery. She did well postop but then developed a right pneumothorax and had a chest tube placed. She has had hypoxemia since that time. She is a non-smoker never has been a smoker. Does not know of any chronic lung disease. Her weight is up 3 kg from admission. She has had some peripheral edema. She is coughing up some phlegm from time to time. She has not had fever. No pleuritic pain Home Medications Medication Instructions Recorded Confirmed Type Aspirin [Ecotrin] 81 mg PO BEDTIME 03/15/17 03/15/17 History Metoprolol Succinate Xl [Toprol Xl] 25 mg PO BEDTIME 03/15/17 03/15/17 History NIFEdipine [Nifedipine ER] 30 mg PO BEDTIME 03/15/17 03/15/17 History Nitroglycerin 0.1 mg/Hr Patch 1 patch TOP DAILY 03/15/17 03/15/17 History [Nitro-Dur 0.1 mg/hr Patch] Omeprazole 40 mg PO BEDTIME 03/15/17 03/15/17 History Rosuvastatin Calcium 20 mg PO BEDTIME 03/15/17 03/15/17 History Allergies Allergy/AdvReac Type Severity Reaction Status Date / Time codeine Allergy Intermediate Vomiting Verified 03/20/17 07:43 Sulfa (Sulfonamide Allergy Intermediate Vomiting Verified 03/20/17 07:43 Antibiotics) 12 point system: reviewed and no additional remarkable complaints except as stated - Cardiovascular Cardiovascular: Present: chest pain with activity, dyspnea, edema - Respiratory Respiratory: Present: cough, dyspnea, dyspnea on exertion Exam (Pulmonay) H&P - Constitutional Vitals: Period Temp Pulse Resp BP Sys/Rubio Pulse Ox Last 24 Hr 97.0 F-99.7 F 78-95 15-33 83-148/52-89 31-96 Exam: Patient is alert and oriented. Normal rhythm rate in the 80s. No fever. O2 sat 92% on 5 L nasal byproducts. Pupils react to light. Throat is clear. Neck supple no bruits. Chest reveals some rhonchi on the bases. Slight dullness at the left base. Heart normal rate and rhythm no murmurs. Sternal wound healing. Abdomen soft nontender no masses. Extremities she has trace to 1+ edema in the legs. Both donor graft sites look good on her legs. Her calves are not tender Medical,Surgical,& Family Hx - Medical History Cardio: History of: CAD, Hypertension Gastrointestinal: History of: GERD - Surgical History Cardiac Surgeries: Sugical HX of: Cardiac Catheterization - Family History Family History: Reports;: Family Heart Disease, Family Hypertension - Social History Smoking Status: Never smoker Frequency of Alcohol Use: None Type of Drug Use: None Results - Labs CBC & BMP: 03/20/17 04:58 03/20/17 04:58 Lab Results: I have reviewed the past 24 hour labs - Diagnostic Findings Procedure: Chest x-ray: image reviewed by me (Chest tube on the right. There is some atelectasis in the right middle and lower lobe. Small pleural effusion on the left.) Quality Measures - VTE Contraindication to Pharmacological VTE Prophylaxis: High Risk of Bleeding Specialty Discharge - Follow Up or Referrals
[2017-03-20] MEDS: methylPREDNISolone SOD SUC 40 MG/1 ML VIAL IV SCH ×2 (08:48→21:30)
[2017-03-20] MEDS: CHLORHEXIDINE 0.12% ORAL RINSE 60 ML BOTTLE SWISH/SPIT SCH ×2 (08:49→21:48)
[2017-03-20] MEDS: AMIODARONE 200 MG TABLET PO SCH ×2 (08:49→21:22)
[2017-03-20] MEDS: FERROUS SULFATE 325 MG TABLET PO SCH (08:49)
[2017-03-20] MEDS: POTASSIUM CHLORIDE 20 MEQ TABLET PO PRN (08:49)
[2017-03-20] MEDS: DOCUSATE SODIUM 100 MG CAPSULE PO SCH (08:49)
[2017-03-20] MEDS: CEFEPIME 1,000 MG in SODIUM CHLORIDE 0.9% 50 ML IV SCH ×2 (08:49→21:33)
[2017-03-20] MEDS: NITROGLYCERIN 0.1 MG/HR PATCH TRANSDERM SCH (09:42)
--- NOTE | 2017-03-20 09:44 | Ultrasound Report ---
History: Leg pain. Hypoxia. Postop CABG Date: 03/20/2017 Study: Bilateral lower extremity color-flow venous Doppler study Comparison exam: No previous Color Doppler, wave form analysis, and compression analysis of the deep veins of both lower extremities from the common femoral vein level through the popliteal vein level shows that the veins are readily compressible. There is no abnormal intraluminal material to suggest thrombus. Waveform analysis is unremarkable. Ultrasound images were captured and archived Impression: No evidence of acute DVT PROCEDURE INTERPRETED AT [facility] DEPARTMENT OF RADIOLOGY Final Report Signed by: Dr. Lina Barnes
--- NOTE | 2017-03-20 09:46 | Order Completion Report ---
See report scanned to EMR
--- NOTE | 2017-03-20 13:14 | Sleep Medicine Consult ---
Assessment and Plan (1) Unspecified sleep apnea Status: Acute Assessment and plan: Her history certainly is concerning for sleep apnea. She has a lot of complex issues ongoing right now and we are unable to assess her with home sleep testing due to these problems. We will set her up for outpatient sleep study after discharge and follow-up in the sleep clinic. Thank you for this consult and the opportunity to participate in her care. Current Visit: Yes (2) Essential hypertension Status: Acute Assessment and plan: The prevalence rate for obstructive sleep apnea patients with hypertension is 35 %. That rate can be as high as 80% in patients who require 4 or more medications for blood pressure control. Current Visit: Yes (3) Atherosclerotic cardiovascular disease Status: Acute Assessment and plan: The [place] data from Lancet 2005 proved significant reduction in the risk of fatal and nonfatal cardiac events in patients with severe obstructive sleep apnea compliant with CPAP, in comparison with those noncompliant with CPAP for severe sleep apnea. Current Visit: Yes History of Present Illness Chief complaint: Sleep apnea History of present illness: Ms. Mcbride is a 71 year old female who was admitted for elective bypass surgery. She been having episodes of shortness of breath and exercise intolerance. Cardiac evaluation ultimately revealed multivessel coronary artery disease. She had bypass surgery and postoperatively had issues with a right sided pneumothorax and atelectasis. She is still in the ICU and being treated for this with pulmonary toilet measures and chest tube. She has been seen by Dr. Clarke for pulmonary medicine. During the course of her evaluation , it was noted that she had a history of snoring and unrefreshing sleep. She will awaken from sleep at times with shortness of breath. She had a stop bang score of 4 and an United sleepiness score of 11. She is quite active during the day. 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 She states she has difficulty staying asleep, awakening several times nightly to urinate. She does have sleepiness during the day when she sits still, having an United sleepiness score of 11. She does have a history of hypertension but no history of diabetes. Home Medications Medication Instructions Recorded Confirmed Type Aspirin [Ecotrin] 81 mg PO BEDTIME 03/15/17 03/15/17 History Metoprolol Succinate Xl [Toprol Xl] 25 mg PO BEDTIME 03/15/17 03/15/17 History NIFEdipine [Nifedipine ER] 30 mg PO BEDTIME 03/15/17 03/15/17 History Nitroglycerin 0.1 mg/Hr Patch 1 patch TOP DAILY 03/15/17 03/15/17 History [Nitro-Dur 0.1 mg/hr Patch] Omeprazole 40 mg PO BEDTIME 03/15/17 03/15/17 History Rosuvastatin Calcium 20 mg PO BEDTIME 03/15/17 03/15/17 History Allergies Allergy/AdvReac Type Severity Reaction Status Date / Time codeine Allergy Intermediate Vomiting Verified 03/20/17 07:43 Sulfa (Sulfonamide Allergy Intermediate Vomiting Verified 03/20/17 07:43 Antibiotics) Review of systems: Otherwise unremarkable from a sleep medicine standpoint. Exam (Pulmonay) H&P - Constitutional Vitals: Period Temp Pulse Resp BP Sys/Rubio Pulse Ox Last 24 Hr 97.0 F-98.7 F 78-92 15-32 101-148/59-89 87-96 Exam: She is alert and responsive in no acute distress. Pupils equal round reactive to light and accommodation. Extraocular movements intact. Oropharynx with a class III Mallampati exam. Neck is supple without adenopathy or thyromegaly. Chest with symmetrical breath sounds without significant wheeze or rhonchi. Cardiac exam reveals a regular rhythm without murmur or gallop. Abdomen soft nontender without palpable hepatosplenomegaly or mass. Extremities are without clubbing, cyanosis, or edema. Neurologically, she is grossly intact. She answers all questions appropriately and moves all extremities with good strength. Medical,Surgical,& Family Hx - Medical History Cardio: History of: CAD, Hypertension Gastrointestinal: History of: GERD - Surgical History Cardiac Surgeries: Sugical HX of: Cardiac Catheterization - Family History Family History: Reports;: Family Heart Disease, Family Hypertension - Social History Smoking Status: Never smoker Frequency of Alcohol Use: None Type of Drug Use: None Results - Labs CBC & BMP: 03/20/17 04:58 03/20/17 04:58 Lab Results: I have reviewed the past 24 hour labs Quality Measures - VTE Contraindication to Pharmacological VTE Prophylaxis: High Risk of Bleeding Specialty Discharge - Follow Up or Referrals
--- NOTE | 2017-03-20 13:21 | Physician Query Form ---
CLICK EDIT DOCUMENT TO SELECT QUERY ANSWER --> OK --> SIGN Dahlia Pereira RN, CCDS Certified Clinical Demo Specialist W) [phone] (f) [phone] [email or web address] PROVIDERS: Make your selection(s) from the choices in EACH section by typing an "x" and enter comments in the comment section. Please use your independent medical judgment in providing your response. This request does not imply that any particular answer is desired or expected. CLINICAL INDICATORS: (Providers should not edit this section) The medical record indicates that the patient was admitted for surgery, on the : "element of congestive heart failure or fluid overload at present", BNP of 404# and the patient is on IV Lasix; "She had normal LV ejection fraction prior to the surgery" Please provide further specificity regarding CHF. ACUITY: ( x) Acute ( ) Chronic ( ) Acute on Chronic ( ) Clinically unable to determine TYPE: ( ) Systolic (HFrEF - heart failure with reduced systolic function/EF) (x ) Diastolic (HFpEF - heart failure with preserved systolic function/EF) ( ) Combined Systolic/Diastolic ( ) Other, please specify: ( ) Clinically unable to determine ( ) Past Medical History of Systolic CHF ( ) Past Medical History of Diastolic CHF ( ) Clinically unable to determine COMMENTS: PLEASE ALSO DOCUMENT RESPONSE IN PROGRESS NOTES AND/OR DISCHARGE SUMMARY Use of terms such as suspected, likely, or probable (associated with a specific diagnosis that is being evaluated, monitored, or treated as if it exists) are acceptable and can be restated in the discharge summary if not ruled out. MTDD
[2017-03-20] MEDS: HYDROmorphone 2 MG/1 ML VIAL IV PRN (19:13)
[2017-03-20] MEDS: DORNASE ALFA 2.5 MG/2.5 ML VIAL RESP TX SCH (19:39)
[2017-03-20] MEDS: PANTOPRAZOLE 40 MG TABLET PO SCH (21:22)
[2017-03-20] MEDS: MAGNESIUM HYDROXIDE SUSP 30 ML UDCUP PO SCH (21:23)
[2017-03-20] MEDS: METOPROLOL SUCCINATE XL 25 MG TABLET PO SCH (21:23)
[2017-03-20] MEDS: ROSUVASTATIN 20 MG TABLET PO SCH (21:23)
[2017-03-20] MEDS: ASPIRIN EC 81 MG TABLET PO SCH (21:23)
[2017-03-20] MEDS: KETOROLAC 30 MG/1 ML VIAL IV PRN (21:32)
[2017-03-21 04:11] LABS: ABG Base Excess 3.1 MMOL/L (-2.5-2.5); ABG HCO3 26.5 MMOL/L (20-26); ABG PCO2 36.4 MM HG (35-48); ABG PO2 57.7 MM HG (80-95); ABG TCO2 27.6 MMOL/L (23-27); Allen Test Positive
[2017-03-21 04:17] LABS: Hematocrit 34.9 VOL% (35.7-47.0); Hemoglobin 11.8 GM/DL (12.0-16.0); Immature Granulocytes % 0.5 %; Immature Granulocytes Absolute 0.07 #; Lymphocytes # 0.7 10*3/uL (1.4-4.0); Lymphocytes % 4.9 % (21.3-54.2); Mean Corpuscular HGB Conc 33.8 GM/DL (32-36); Mean Corpuscular Hemoglobin 28 PG (27-34); Mean Corpuscular Volume 82.3 FL (87-102); Mean Platelet Volume 11.5 FL (9.6-12.0); Monocytes # 0.5 10*3/uL (0.11-0.8); Monocytes % 3.6 % (1.7-12.7); NRBC # 0.02 10*3/uL; Platelet Count 246 T/CUMM (130-400); Red Blood Count 4.24 MC/CUMM (3.8-5.5); Red Cell Distribution Width 19.6 % (9.3-17.3); White Blood Count 13.2 T/CUMM (4-12)
[2017-03-21 04:54] LABS: Alanine Aminotransferase 42 U/L (13-56); Albumin 2.7 G/DL (3.4-5.0); Alkaline Phosphatase 84 U/L (45-117); Aspartate Amino Transferase 48 U/L (0-37); Bilirubin,Indirect 0.5 MG/DL (0.0-1.0); Blood Urea Nitrogen 22 MG/DL (7-18); Calcium 8.5 MG/DL (8.5-10.1); Glucose 190 MG/DL (74-106); Magnesium 2.9 MG/DL (1.8-2.4); Osmolality,Calculated 286.4 MOS/KG (273-304); Potassium 4.4 MMOL/L (3.5-5.1); Sodium 140 MMOL/L (136-145); Total Protein 5.9 G/DL (6.4-8.3)
[2017-03-21 06:03] LABS: Band Neutrophils 1 % (0-10); Hypochromasia 1+; Lymphocytes 6 % (20-55); Microcytosis 1+; Nucleated Red Blood Cells 1 (0-5); Platelet Estimate Normal; Segmented Neutrophils 88 % (50-85); Total Cells Counted 100
--- NOTE | 2017-03-21 06:18 | Cardiothoracic Progress Note ---
Cardiothoracic Subjective Interval history: Patient had a comfortable night. She slept most of the night and O2 sats remained in the mid to upper 90s. She looks comfortable this morning and her vital signs are stable with an O2 sat of 95%. Her PO2 this morning is up from yesterday but is still borderline at 57. Her remaining laboratory work is within normal limits for postoperative day #5. Chest x-ray still shows evidence of what appears to be a combination of atelectasis and pulmonary edema but this does not look significantly different from yesterday. Overall I think she is better, certainly she is symptomatically better. From my standpoint I believe she could go to telemetry but I am going to defer final decision on that pending Dr. Clarke input. I see no air leak this morning and none has been reported through the night comfortably that right chest tube for now and we may clamp it later today and get an x-ray in the morning with the hope of removing it at that time. Exam (Progress Note) - Constitutional Vitals: Period Temp Pulse Resp BP Sys/Rubio Pulse Ox Last 24 Hr 97.0 F-99.1 F 69-88 15-32 80-157/59-87 91-100 Result/EKG - Labs CBC & BMP: 03/21/17 04:00 03/21/17 04:00 Labs: Laboratory Results - last 24 hr 03/20/17 03/20/17 03/20/17 04:58 08:19 12:08 WBC RBC Hgb Hct MCV MCH MCHC RDW Plt Count MPV Neut % (Auto) Lymph % (Auto) Weld % (Auto) Eos % (Auto) Baso % (Auto) Neut # (Auto) Lymph # (Auto) Weld # (Auto) Eos # (Auto) Baso # (Auto) Total Counted Immature Gran % Nucleated RBC % Immature Gran # Segmented Neutrophils Band Neutrophils Lymphocytes Monocytes Nucleated RBCs Nucleated RBCs # Platelet Estimate Immature Plt Fraction Hypochromasia Microcytosis Morphology Comment ABG pH ABG pCO2 ABG pO2 ABG HCO3 ABG Total CO2 ABG O2 Saturation ABG Base Excess FiO2 Sodium Potassium Chloride Carbon Dioxide Anion Gap BUN Creatinine GFR Calculation BUN/Creatinine Ratio Glucose POC Glucose 176 H 189 H Calculated Osmolality Calcium Magnesium Total Bilirubin Direct Bilirubin Indirect Bilirubin AST ALT Alkaline Phosphatase Total Creatine Kinase CK-MB (CK-2) Troponin I B-Natriuretic Peptide 404 H Total Protein Albumin Globulin Albumin/Globulin Ratio 03/20/17 03/20/17 03/21/17 15:41 21:22 03:20 WBC RBC Hgb Hct MCV MCH MCHC RDW Plt Count MPV Neut % (Auto) Lymph % (Auto) Weld % (Auto) Eos % (Auto) Baso % (Auto) Neut # (Auto) Lymph # (Auto) Weld # (Auto) Eos # (Auto) Baso # (Auto) Total Counted Immature Gran % Nucleated RBC % Immature Gran # Segmented Neutrophils Band Neutrophils Lymphocytes Monocytes Nucleated RBCs Nucleated RBCs # Platelet Estimate Immature Plt Fraction Hypochromasia Microcytosis Morphology Comment ABG pH 7.480 H ABG pCO2 36.4 ABG pO2 57.7 L ABG HCO3 26.5 H ABG Total CO2 27.6 H ABG O2 Saturation 92.0 L ABG Base Excess 3.1 H FiO2 40.00 Sodium Potassium Chloride Carbon Dioxide Anion Gap BUN Creatinine GFR Calculation BUN/Creatinine Ratio Glucose POC Glucose 186 H 181 H Calculated Osmolality Calcium Magnesium Total Bilirubin Direct Bilirubin Indirect Bilirubin AST ALT Alkaline Phosphatase Total Creatine Kinase CK-MB (CK-2) Troponin I B-Natriuretic Peptide Total Protein Albumin Globulin Albumin/Globulin Ratio 03/21/17 03/21/17 04:00 04:00 WBC 13.2 H RBC 4.24 Hgb 11.8 L Hct 34.9 L MCV 82.3 L MCH 28 MCHC 33.8 RDW 19.6 H Plt Count 246 D MPV 11.5 Neut % (Auto) 91.0 H Lymph % (Auto) 4.9 L Weld % (Auto) 3.6 Eos % (Auto) 0.0 Baso % (Auto) 0.0 Neut # (Auto) 12.0 H Lymph # (Auto) 0.7 L Weld # (Auto) 0.5 Eos # (Auto) 0.0 Baso # (Auto) 0.0 Total Counted 100 Immature Gran % 0.5 Nucleated RBC % 0.2 Immature Gran # 0.07 Segmented Neutrophils 88 H Band Neutrophils 1 Lymphocytes 6 L Monocytes 5 Nucleated RBCs 1 Nucleated RBCs # 0.02 Platelet Estimate Normal Immature Plt Fraction 0.0 Hypochromasia 1+ Microcytosis 1+ Morphology Comment ABG pH ABG pCO2 ABG pO2 ABG HCO3 ABG Total CO2 ABG O2 Saturation ABG Base Excess FiO2 Sodium 140 Potassium 4.4 Chloride 104 Carbon Dioxide 30 Anion Gap 10.4 BUN 22 H Creatinine 0.80 GFR Calculation 91 BUN/Creatinine Ratio 27.00 H Glucose 190 H POC Glucose Calculated Osmolality 286.4 Calcium 8.5 Magnesium 2.9 H Total Bilirubin 0.60 Direct Bilirubin 0.130 Indirect Bilirubin 0.5 AST 48 H ALT 42 Alkaline Phosphatase 84 Total Creatine Kinase 256 H D CK-MB (CK-2) 1.1 Troponin I 3.530 H D B-Natriuretic Peptide Total Protein 5.9 L Albumin 2.7 L Globulin 3.2 Albumin/Globulin Ratio 0.8 L Quality Measures - VTE Contraindication to Pharmacological VTE Prophylaxis: High Risk of Bleeding Specialty Discharge - Follow Up or Referrals
[2017-03-21] MEDS ORDERED: FUROSEMIDE 40 MG/4 ML VIAL IV ONE (06:40)
--- NOTE | 2017-03-21 06:43 | Pulmonology Progress Note ---
Pulmonary - PN: Subj Interval history: This 71-year-old white female is postop coronary bypass surgery. She had a right pneumothorax. She has a chest tube in place but does not appear to be leaking air. She does have some changes of postoperative atelectasis and mild pulmonary edema. Will repeat IV Lasix this morning. Her oxygen saturations are looking better. She is able to sit up and eat. I do think we can move her to the floor. Exam (Progress Note) - Constitutional Vitals: Period Temp Pulse Resp BP Sys/Rubio Pulse Ox Last 24 Hr 97.0 F-99.1 F 69-88 15-32 80-157/59-87 91-100 Exam: Patient's alert oriented vital signs normal. O2 sat measured 94% on 5 L at present. Pupils react to light. Throat is clear. Neck supple no bruits. Chest reveals some basilar rhonchi. Heart normal rate rhythm no murmurs. Abdomen soft nontender no masses. Extremities no clubbing cyanosis 1+ edema. Calves nontender. Results - Labs CBC & BMP: 03/21/17 04:00 03/21/17 04:00 Lab Results: I have reviewed the past 24 hour labs - Diagnostic Findings Procedure: Chest x-ray: image reviewed by me (Small left pleural effusion. Mild basilar atelectasis. Chest tube good position. CVP line acceptable position.) Assessment and Plan (1) Postoperative atelectasis Status: Acute Assessment and plan: Think this is the main cause of her hypoxemia. Will add Pulmozyme and use Acapella chest PT. 03/21/2017 atelectasis seems clinically improved. Continue Pulmozyme for 2 more days. Current Visit: Yes (2) Pneumothorax, right Status: Acute Assessment and plan: Chest tube in good position. I do not see any air leak at present. 03/21/2017 no air leak. Could remove chest tube anytime. Current Visit: Yes (3) Atherosclerotic cardiovascular disease Status: Acute Assessment and plan: Status post coronary bypass surgery. Troponins went up postoperatively as one would expect. She had normal LV function prior to surgery. There may be an element of congestive heart failure or fluid overload at present. I will diurese her and check a BNP. Her weight is up 3 kg from admission weight. 03/21/2017 apparently has some mild diastolic dysfunction. BNP around 400. Bump with Lasix again. Current Visit: Yes (4) Postoperative hypoxemia Status: Acute Assessment and plan: This is multifactorial due to atelectasis possible fluid overload and pain from splinting from the pneumothorax and chest tube. At present she has an acceptable O2 sat on 5 L. We will leave her on that. If we have to increase oxygen I would use nebulized oxygen as she did not tolerate the dry oxygen flow of the Ventimask earlier. 03/21/2017 multifactorial see above. Current Visit: Yes Specialty Discharge - Follow Up or Referrals
[2017-03-21] MEDS: ALBUTEROL/IPRATROPIUM 3 ML NEB RESP TX SCH ×3 (07:02→19:52)
[2017-03-21] MEDS: DORNASE ALFA 2.5 MG/2.5 ML VIAL RESP TX SCH ×2 (07:02→19:52)
--- NOTE | 2017-03-21 08:23 | XRay Report ---
Exam: XR chest 1V portable Date: 03/21/2017 4:00 AM Indication: Shortness of breath Comparison: 03/20/2017 Technical: AP Findings: Sternotomy wires are present. Cardiomegaly is noted. Low volume effusions are present bilaterally with a right-sided thoracotomy tube extends the right apex with a right IJ catheter extending into the right atrium to the junction of the inferior vena cava. External cardiac leads and some epicardial leads are present. No pneumothorax Impression: 1. No significant interval change with stable appearance of the right thoracotomy tube. 2. IJ catheter extends into the right atrium to the level of the this inferior vena cava junction 3. Cardiomegaly with previous sternotomy and low volume effusions atelectatic change PROCEDURE INTERPRETED AT [facility] DEPARTMENT OF RADIOLOGY Final Report Signed by: Dr. Juan Ibanez
[2017-03-21] MEDS: FERROUS SULFATE 325 MG TABLET PO SCH (09:28)
[2017-03-21] MEDS: DOCUSATE SODIUM 100 MG CAPSULE PO SCH (09:28)
[2017-03-21] MEDS: AMIODARONE 200 MG TABLET PO SCH ×2 (09:28→21:48)
[2017-03-21] MEDS: MAGNESIUM HYDROXIDE SUSP 30 ML UDCUP PO PRN ×2 (09:31→21:41)
[2017-03-21] MEDS: CEFEPIME 1,000 MG in SODIUM CHLORIDE 0.9% 50 ML IV SCH ×3 (09:31→21:42)
[2017-03-21] MEDS: methylPREDNISolone SOD SUC 40 MG/1 ML VIAL IV SCH ×2 (09:32→21:44)
[2017-03-21] MEDS: NITROGLYCERIN 0.1 MG/HR PATCH TRANSDERM SCH (09:40)
[2017-03-21] MEDS: CHLORHEXIDINE 0.12% ORAL RINSE 60 ML BOTTLE SWISH/SPIT SCH ×2 (09:43→21:48)
[2017-03-21] MEDS: HYDROmorphone 2 MG/1 ML VIAL IV PRN ×2 (11:02→21:46)
[2017-03-21] MEDS: INSULIN REGULAR 100 UNIT/ML SUBCUT SCH ×3 (12:30→21:49)
[2017-03-21] MEDS ORDERED: ONDANSETRON 4 MG/2 ML VIAL IV PRN (16:28)
[2017-03-21] MEDS ORDERED: MAGNESIUM SULF RIDER 4 GM in PREMIX 1 EACH IV PRN (16:28)
[2017-03-21] MEDS ORDERED: DEXTROSE 50% 25 GM/50 ML SYRINGE IV PRN ×2 (16:28)
[2017-03-21] MEDS ORDERED: ACETAMINOPHEN 325 MG TABLET PO PRN (16:28)
[2017-03-21] MEDS ORDERED: MAGNESIUM SULF RIDER 2 GM in PREMIX 1 EACH IV PRN (16:28)
[2017-03-21] MEDS ORDERED: POTASSIUM CHLORIDE 20 MEQ TABLET PO PRN (16:28)
[2017-03-21] MEDS ORDERED: SODIUM CHLOR 0.45% KCL 20 MEQ 20 MEQ/1,000 ML BAG IV SCH (16:28)
[2017-03-21] MEDS ORDERED: oxyCODONE/ACETAMINOPHEN 5-325 MG TABLET PO PRN (16:28)
[2017-03-21] MEDS ORDERED: ALUMINUM/MAGNES/SIMETH MAX STR 30 ML UDCUP PO PRN (16:28)
[2017-03-21] MEDS ORDERED: GLUCAGON 1 MG VIAL IM PRN ×2 (16:28)
[2017-03-21] MEDS ORDERED: INSULIN REGULAR 100 UNIT/ML SUBCUT SCH (16:30)
[2017-03-21] MEDS: METOPROLOL SUCCINATE XL 25 MG TABLET PO SCH (21:48)
[2017-03-21] MEDS: ASPIRIN EC 81 MG TABLET PO SCH (21:48)
[2017-03-21] MEDS: ROSUVASTATIN 20 MG TABLET PO SCH (21:48)
[2017-03-21] MEDS: ZALEPLON 5 MG CAPSULE PO PRN (23:51)
[2017-03-22] MEDS: HYDROmorphone 2 MG/1 ML VIAL IV PRN ×3 (03:29→23:54)
[2017-03-22 05:24] LABS: Basophils % 0.1 % (0.0-0.8); Hematocrit 33.5 VOL% (35.7-47.0); Hemoglobin 11.6 GM/DL (12.0-16.0); Immature Granulocytes % 0.7 %; Immature Granulocytes Absolute 0.12 #; Lymphocytes # 0.9 10*3/uL (1.4-4.0); Lymphocytes % 5.5 % (21.3-54.2); Mean Corpuscular HGB Conc 34.6 GM/DL (32-36); Mean Corpuscular Hemoglobin 29 PG (27-34); Mean Corpuscular Volume 83.1 FL (87-102); Mean Platelet Volume 11.1 FL (9.6-12.0); Monocytes # 0.9 10*3/uL (0.11-0.8); Monocytes % 5.6 % (1.7-12.7); NRBC # 0.04 10*3/uL; Neutrophils # 14.4 10*3/uL (1.4-7.4); Neutrophils % 88.1 % (38.7-73.9); Platelet Count 314 T/CUMM (130-400); Red Blood Count 4.03 MC/CUMM (3.8-5.5); White Blood Count 16.4 T/CUMM (4-12)
[2017-03-22 05:58] LABS: Alanine Aminotransferase 51 U/L (13-56); Albumin 2.6 G/DL (3.4-5.0); Alkaline Phosphatase 80 U/L (45-117); Aspartate Amino Transferase 44 U/L (0-37); Bilirubin,Direct < 0.100 MG/DL (0.0-0.20); Bilirubin,Indirect 0.5 MG/DL (0.0-1.0); Blood Urea Nitrogen 30 MG/DL (7-18); Calcium 8.7 MG/DL (8.5-10.1); Glucose 144 MG/DL (74-106); Magnesium 3.1 MG/DL (1.8-2.4); Osmolality,Calculated 289.3 MOS/KG (273-304); Potassium 4.7 MMOL/L (3.5-5.1); Sodium 141 MMOL/L (136-145); Total Protein 5.8 G/DL (6.4-8.3)
[2017-03-22] MEDS ORDERED: FUROSEMIDE 40 MG/4 ML VIAL IV ONE ×2 (06:00→07:40)
--- NOTE | 2017-03-22 07:40 | Pulmonology Progress Note ---
Pulmonary - PN: Subj Interval history: This 71-year-old white female is postop coronary bypass surgery. She had a right pneumothorax. She has a chest tube in place but does not appear to be leaking air. She does have some changes of postoperative atelectasis and mild pulmonary edema. Will repeat IV Lasix this morning. Her oxygen saturations are looking better. She is able to sit up and eat. I do think we can move her to the floor. 03/22/2017 patient feeling better. O2 sat in the upper 90s on 5 L. Can wean oxygen. Chest tube is clamped. Lungs sound good and chest x-ray looks good with the tube clamped. Could be removed. The atelectasis noted earlier on the right side looks better. She still has a small left pleural effusion. One more dose of Lasix may help. Exam (Progress Note) - Constitutional Vitals: Period Temp Pulse Resp BP Sys/Rubio Pulse Ox Last 24 Hr 97.1 F-98.5 F 64-86 16-36 111-128/58-77 93-100 Exam: Patient's alert oriented vital signs normal. O2 sat measured 98% on 5 L at present. Pupils react to light. Throat is clear. Neck supple no bruits. Chest reveals some basilar rhonchi. Heart normal rate rhythm no murmurs. Abdomen soft nontender no masses. Extremities no clubbing cyanosis 1+ edema. Calves nontender. Results - Labs CBC & BMP: 03/22/17 04:00 03/22/17 04:00 Lab Results: I have reviewed the past 24 hour labs - Diagnostic Findings Procedure: Chest x-ray: image reviewed by me (Right lung well expanded with chest tube clamped small left pleural effusion.) Assessment and Plan (1) Postoperative atelectasis Status: Acute Assessment and plan: Think this is the main cause of her hypoxemia. Will add Pulmozyme and use Acapella chest PT. 03/21/2017 atelectasis seems clinically improved. Continue Pulmozyme for 2 more days. 03/22/2017 this looks better radiographically. Stop Pulmozyme tomorrow. Increase activity as helping. Likely will do better once chest tube is removed. Current Visit: Yes (2) Pneumothorax, right Status: Acute Assessment and plan: Chest tube in good position. I do not see any air leak at present. 03/21/2017 no air leak. Could remove chest tube anytime. 03/22/2017 on well-expanded with chest tube clamped. Tube can be removed. Current Visit: Yes (3) Atherosclerotic cardiovascular disease Status: Acute Assessment and plan: Status post coronary bypass surgery. Troponins went up postoperatively as one would expect. She had normal LV function prior to surgery. There may be an element of congestive heart failure or fluid overload at present. I will diurese her and check a BNP. Her weight is up 3 kg from admission weight. 03/21/2017 apparently has some mild diastolic dysfunction. BNP around 400. Bump with Lasix again. 03/22/2017 status post coronary bypass surgery. Mild diastolic dysfunction. One more dose of Lasix. Current Visit: Yes (4) Postoperative hypoxemia Status: Acute Assessment and plan: This is multifactorial due to atelectasis possible fluid overload and pain from splinting from the pneumothorax and chest tube. At present she has an acceptable O2 sat on 5 L. We will leave her on that. If we have to increase oxygen I would use nebulized oxygen as she did not tolerate the dry oxygen flow of the Ventimask earlier. 03/21/2017 multifactorial see above. 03/22/2017 hypoxemia is improving. Should be able to wean oxygen down to 2 L or so. Current Visit: Yes Specialty Discharge - Follow Up or Referrals
[2017-03-22] MEDS: ALBUTEROL/IPRATROPIUM 3 ML NEB RESP TX SCH ×3 (07:47→20:20)
[2017-03-22] MEDS: DORNASE ALFA 2.5 MG/2.5 ML VIAL RESP TX SCH ×2 (07:47→20:33)
[2017-03-22] MEDS: INSULIN REGULAR 100 UNIT/ML SUBCUT SCH ×4 (07:59→20:20)
--- NOTE | 2017-03-22 08:21 | XRay Report ---
History: Shortness of breath Date: 03/22/2017 Study: Chest x-ray AP portable Comparison exam: 03/21/2017 There is no evidence of pneumothorax. The right chest tube is stable in appearance. The right IJ central line is unchanged. There is stable cardiomegaly as before. The mediastinal contours are similar. The pulmonary vasculature is not engorged. Left greater than right bibasilar atelectasis persists. This is slightly improved on the right. There is continued mild left pleural effusion. There is no interval worsening. Osseous structures are similar. Impression: No evidence of a pneumothorax. Stable positioning of the right chest tube Continued left greater than right bibasilar atelectasis with slight improvement on the right PROCEDURE INTERPRETED AT [facility] DEPARTMENT OF RADIOLOGY Final Report Signed by: Dr. Lina Barnes
--- NOTE | 2017-03-22 08:59 | Cardiothoracic Progress Note ---
Cardiothoracic Subjective Interval history: Patient looks and feels better. She is clearly stronger and is breathing much better. Vital signs have been stable. Chest x-ray this morning shows no pneumothorax after chest tubes have been clamped for 12 hours. I am going to remove her chest tube and begin to increase her activity as tolerated. Overall her progress is satisfactory. Exam (Progress Note) - Constitutional Vitals: Period Temp Pulse Resp BP Sys/Rubio Pulse Ox Last 24 Hr 97.1 F-98.5 F 64-86 16-36 111-128/58-77 93-100 Result/EKG - Labs CBC & BMP: 03/22/17 04:00 03/22/17 04:00 Labs: Laboratory Results - last 24 hr 03/21/17 03/21/17 03/21/17 11:10 16:28 18:58 WBC RBC Hgb Hct MCV MCH MCHC RDW Plt Count MPV Neut % (Auto) Lymph % (Auto) [place] % (Auto) Eos % (Auto) Baso % (Auto) Neut # (Auto) Lymph # (Auto) [place] # (Auto) Eos # (Auto) Baso # (Auto) Immature Gran % Nucleated RBC % Immature Gran # Nucleated RBCs # Immature Plt Fraction Sodium Potassium Chloride Carbon Dioxide Anion Gap BUN Creatinine GFR Calculation BUN/Creatinine Ratio Glucose POC Glucose 301 H 270 H 155 H Calculated Osmolality Calcium Magnesium Total Bilirubin Direct Bilirubin Indirect Bilirubin AST ALT Alkaline Phosphatase Total Creatine Kinase CK-MB (CK-2) Troponin I Total Protein Albumin Globulin Albumin/Globulin Ratio 03/22/17 03/22/17 03/22/17 04:00 04:00 07:47 WBC 16.4 H RBC 4.03 Hgb 11.6 L Hct 33.5 L MCV 83.1 L MCH 29 MCHC 34.6 RDW 20.0 H Plt Count 314 D MPV 11.1 Neut % (Auto) 88.1 H Lymph % (Auto) 5.5 L [place] % (Auto) 5.6 Eos % (Auto) 0.0 Baso % (Auto) 0.1 Neut # (Auto) 14.4 H Lymph # (Auto) 0.9 L [place] # (Auto) 0.9 H Eos # (Auto) 0.0 Baso # (Auto) 0.0 Immature Gran % 0.7 Nucleated RBC % 0.2 Immature Gran # 0.12 Nucleated RBCs # 0.04 Immature Plt Fraction 0.0 Sodium 141 Potassium 4.7 Chloride 105 Carbon Dioxide 29 Anion Gap 11.7 BUN 30 H Creatinine 0.80 GFR Calculation 91 BUN/Creatinine Ratio 37.00 H Glucose 144 H POC Glucose 131 H Calculated Osmolality 289.3 Calcium 8.7 Magnesium 3.1 H Total Bilirubin 0.60 Direct Bilirubin < 0.100 Indirect Bilirubin 0.5 AST 44 H ALT 51 Alkaline Phosphatase 80 Total Creatine Kinase 143 D CK-MB (CK-2) 1.5 Troponin I 2.640 H D Total Protein 5.8 L Albumin 2.6 L Globulin 3.2 Albumin/Globulin Ratio 0.8 L Quality Measures - VTE Contraindication to Pharmacological VTE Prophylaxis: High Risk of Bleeding Specialty Discharge - Follow Up or Referrals
[2017-03-22] MEDS: NITROGLYCERIN 0.1 MG/HR PATCH TRANSDERM SCH (09:29)
[2017-03-22] MEDS: AMIODARONE 200 MG TABLET PO SCH ×2 (09:30→20:18)
[2017-03-22] MEDS: PANTOPRAZOLE 40 MG TABLET PO SCH (09:30)
[2017-03-22] MEDS: FERROUS SULFATE 325 MG TABLET PO SCH (09:30)
[2017-03-22] MEDS: CHLORHEXIDINE 0.12% ORAL RINSE 60 ML BOTTLE SWISH/SPIT SCH ×2 (09:30→20:21)
[2017-03-22] MEDS: DOCUSATE SODIUM 100 MG CAPSULE PO SCH (09:30)
[2017-03-22] MEDS: CEFEPIME 1,000 MG in SODIUM CHLORIDE 0.9% 50 ML IV SCH ×2 (09:31→20:13)
--- NOTE | 2017-03-22 13:20 | Physician Query Form ---
CLICK EDIT DOCUMENT TO SELECT QUERY ANSWER --> OK --> SIGN Dahlia Pereira RN, CCDS Certified Clinical Insurance [place] W) [phone] (f) [phone] [email or web address] PROVIDERS: Make your selection(s) from the choices in EACH section by typing an "x" and enter comments in the comment section. Please use your independent medical judgment in providing your response. This request does not imply that any particular answer is desired or expected. CLINICAL INDICATORS: (Providers should not edit this section) The medical record indicates that the patient was admitted for surgery, placed on oxygen on the : 4 Liters per NC, on the : 5-8 liters per NC, on the : 10-15 NRB, "Postoperative hypoxemia" and the patient had some "postoperative atelectasis". If possible, please further clarify the type and acuity of respiratory diagnosis : ACUITY: (x) Acute ( ) Chronic ( ) Acute on Chronic TYPE: ( x) Respiratory failure with hypoxia ( ) Respiratory failure with hypercapnia ( ) Respiratory Arrest ( ) Postprocedural/postoperative respiratory failure ( ) Respiratory Insufficiency ( ) ARDS (Adult/Acute Respiratory Distress Syndrome) ( ) Other, please specify: ( ) Clinically unable to determine Recognized criteria for respiratory failure PH <7.35 or >7.45 PO2 <60 PCO2 >50 RR >24 O2 Sat <90% on RA or <95% on O2 Use of accessory muscles Unable to speak in full sentences Intubation is not required COMMENTS: PLEASE ALSO DOCUMENT RESPONSE IN PROGRESS NOTES AND/OR DISCHARGE SUMMARY Use of terms such as suspected, likely, or probable (associated with a specific diagnosis that is being evaluated, monitored, or treated as if it exists) are acceptable and can be restated in the discharge summary if not ruled out. MTDD
[2017-03-22] MEDS: ASPIRIN EC 81 MG TABLET PO SCH (20:18)
[2017-03-22] MEDS: ROSUVASTATIN 20 MG TABLET PO SCH (20:18)
[2017-03-22] MEDS: METOPROLOL SUCCINATE XL 25 MG TABLET PO SCH (20:18)
[2017-03-22] MEDS: ZALEPLON 5 MG CAPSULE PO PRN (23:49)
[2017-03-23] MEDS: HYDROmorphone 2 MG/1 ML VIAL IV PRN ×2 (05:33→20:37)
[2017-03-23 05:38] LABS: Basophils % 0.1 % (0.0-0.8); Eosinophils # 0.1 10*3/uL (0.0-0.87); Eosinophils % 0.8 % (0.00-10.9); Hematocrit 35.9 VOL% (35.7-47.0); Hemoglobin 11.8 GM/DL (12.0-16.0); Immature Granulocytes % 1.4 %; Immature Granulocytes Absolute 0.22 #; Lymphocytes # 2.1 10*3/uL (1.4-4.0); Lymphocytes % 13.3 % (21.3-54.2); Mean Corpuscular HGB Conc 32.9 GM/DL (32-36); Mean Corpuscular Hemoglobin 28 PG (27-34); Mean Corpuscular Volume 84.1 FL (87-102); Mean Platelet Volume 11.1 FL (9.6-12.0); Monocytes # 1.9 10*3/uL (0.11-0.8); Monocytes % 12.3 % (1.7-12.7); NRBC # 0.03 10*3/uL; Neutrophils # 11.3 10*3/uL (1.4-7.4); Neutrophils % 72.1 % (38.7-73.9); Platelet Count 413 T/CUMM (130-400); Red Blood Count 4.27 MC/CUMM (3.8-5.5); White Blood Count 15.7 T/CUMM (4-12)
[2017-03-23 06:17] LABS: Alanine Aminotransferase 56 U/L (13-56); Albumin 2.7 G/DL (3.4-5.0); Alkaline Phosphatase 88 U/L (45-117); Aspartate Amino Transferase 44 U/L (0-37); Bilirubin,Direct < 0.100 MG/DL (0.0-0.20); Bilirubin,Indirect 0.4 MG/DL (0.0-1.0); Blood Urea Nitrogen 23 MG/DL (7-18); Calcium 8.3 MG/DL (8.5-10.1); Glucose 91 MG/DL (74-106); Magnesium 2.6 MG/DL (1.8-2.4); Osmolality,Calculated 284.3 MOS/KG (273-304); Potassium 3.6 MMOL/L (3.5-5.1); Sodium 141 MMOL/L (136-145); Total Protein 5.8 G/DL (6.4-8.3)
--- NOTE | 2017-03-23 06:18 | Cardiothoracic Progress Note ---
Cardiothoracic Subjective Interval history: Patient looks and feels better. She is slowly getting stronger. Vital signs have been stable and she is breathing comfortably. We will try to increase her activities as tolerated today. Hopefully she will be ready for discharge in 2- 3 days. Exam (Progress Note) - Constitutional Vitals: Period Temp Pulse Resp BP Sys/Rubio Pulse Ox Last 24 Hr 97.4 F-97.8 F 66-91 16-20 112-180/60-73 92-100 Result/EKG - Labs CBC & BMP: 03/23/17 04:41 03/22/17 04:00 Labs: Laboratory Results - last 24 hr 03/22/17 03/22/17 03/22/17 07:47 12:01 16:11 WBC RBC Hgb Hct MCV MCH MCHC RDW Plt Count MPV Neut % (Auto) Lymph % (Auto) [place] % (Auto) Eos % (Auto) Baso % (Auto) Neut # (Auto) Lymph # (Auto) [place] # (Auto) Eos # (Auto) Baso # (Auto) Immature Gran % Nucleated RBC % Immature Gran # Nucleated RBCs # Immature Plt Fraction POC Glucose 131 H 241 H 262 H 03/22/17 03/23/17 20:17 04:41 WBC 15.7 H RBC 4.27 Hgb 11.8 L Hct 35.9 MCV 84.1 L MCH 28 MCHC 32.9 RDW 20.0 H Plt Count 413 H D MPV 11.1 Neut % (Auto) 72.1 Lymph % (Auto) 13.3 L [place] % (Auto) 12.3 Eos % (Auto) 0.8 Baso % (Auto) 0.1 Neut # (Auto) 11.3 H Lymph # (Auto) 2.1 [place] # (Auto) 1.9 H Eos # (Auto) 0.1 Baso # (Auto) 0.0 Immature Gran % 1.4 Nucleated RBC % 0.2 Immature Gran # 0.22 Nucleated RBCs # 0.03 Immature Plt Fraction 0.0 POC Glucose 157 H Quality Measures - VTE Contraindication to Pharmacological VTE Prophylaxis: High Risk of Bleeding Specialty Discharge - Follow Up or Referrals
[2017-03-23] MEDS: ALBUTEROL/IPRATROPIUM 3 ML NEB RESP TX SCH ×3 (07:09→19:11)
--- NOTE | 2017-03-23 07:50 | XRay Report ---
Portable chest Date: 03/23/2017 Clinical history: Shortness of breath Comparison: 03/22/2017 Technique: Portable AP sitting chest Findings: Status post median sternotomy with minimal cardiomegaly. Interval removal of the right chest tube with no significant pneumothorax. Stable right IJ CVP line. Residual atelectasis at the lung bases with small left pleural effusion. Stable mediastinum and osseous structures. Prior cholecystectomy. Impression: Removal right chest tube with no significant pneumothorax. Status post median sternotomy with residual atelectasis at the lung bases with small left pleural effusion. PROCEDURE INTERPRETED AT [facility] DEPARTMENT OF RADIOLOGY Final Report Signed by: Dr. Elizabeth Garcia
[2017-03-23] MEDS: AMIODARONE 200 MG TABLET PO SCH ×2 (08:38→20:27)
[2017-03-23] MEDS: INSULIN REGULAR 100 UNIT/ML SUBCUT SCH ×4 (08:38→20:27)
[2017-03-23] MEDS: FERROUS SULFATE 325 MG TABLET PO SCH (08:38)
[2017-03-23] MEDS: PANTOPRAZOLE 40 MG TABLET PO SCH (08:38)
[2017-03-23] MEDS: DOCUSATE SODIUM 100 MG CAPSULE PO SCH (08:38)
[2017-03-23] MEDS: CEFEPIME 1,000 MG in SODIUM CHLORIDE 0.9% 50 ML IV SCH ×2 (08:39→20:27)
[2017-03-23] MEDS: NITROGLYCERIN 0.1 MG/HR PATCH TRANSDERM SCH (08:39)
[2017-03-23] MEDS: CHLORHEXIDINE 0.12% ORAL RINSE 60 ML BOTTLE SWISH/SPIT SCH ×2 (08:40→20:27)
--- NOTE | 2017-03-23 09:00 | Pulmonology Progress Note ---
Pulmonary - PN: Subj Interval history: The patient is a 71-year-old black lady that has had bypass surgery about a week ago. She had a right pneumothorax and had a chest tube for several days. The tube was removed yesterday and she is doing well. She says she is walking around and feels better. She denies having any trouble breathing. Her chest soreness is getting better. She says she had a bowel movement yesterday and is feeling better. She is eating a little better. Her chest x-ray looks stable. Exam (Progress Note) - Constitutional Vitals: Period Temp Pulse Resp BP Sys/Rubio Pulse Ox Last 24 Hr 97.4 F-98.9 F 78-91 16-20 116-180/60-73 92-100 General appearance: normal weight, no acute distress - Head Head exam: Present: normal inspection, normocephalic - Eye Eye exam: Present: EOMI. Absent: scleral icterus Pupils: Present: MAGGY - ENT ENT exam: Present: normal exam - Neck Neck exam: Absent: lymphadenopathy, thyromegaly - Respiratory Respiratory exam: Present: chest wall tenderness (Her chest wall soreness is better.), rales (She has some slight crackles in the left base.). Absent: accessory muscle use - Cardiovascular Cardiovascular exam: Present: regular rate and rhythm. Absent: gallop, systolic murmur - GI/Abdominal GI/Abdominal exam: Present: normal bowel sounds, soft. Absent: organomegaly, tenderness - Extremities Exam Extremities exam: Absent: calf tenderness, edema - Neurological Exam Neurological exam: Present: alert, oriented X3, CN II-XII intact. Absent: motor sensory deficit - Psychiatric Psychiatric exam: Present: normal affect, normal mood - Skin Skin exam: Present: warm, dry Results - Labs CBC & BMP: 03/23/17 04:41 03/23/17 04:41 - Diagnostic Findings Procedure: Chest x-ray: image reviewed by me, report reviewed by me (Chest x- ray shows minimal left lower lobe infiltrate. There is no pneumothorax on the right.) Assessment and Plan (1) Postoperative atelectasis Status: Acute Assessment and plan: Patient has mild left lower lobe atelectasis now and is getting better. She is starting to do more activity. She will continue with respiratory therapy. Current Visit: Yes (2) Pneumothorax, right Status: Acute Assessment and plan: The right pneumothorax has resolved and the chest tube is out. Current Visit: Yes (3) Atherosclerotic cardiovascular disease Status: Acute Assessment and plan: The patient is status post bypass surgery for a week. She is gradually increasing her activity. Current Visit: Yes (4) Postoperative hypoxemia Status: Acute Assessment and plan: Her O2 saturations are better now. Current Visit: Yes (5) Essential hypertension Status: Acute Assessment and plan: Her vital signs are stable and her blood pressure is under good control. Current Visit: Yes Specialty Discharge - Follow Up or Referrals
[2017-03-23] MEDS: KETOROLAC 30 MG/1 ML VIAL IV PRN (16:10)
[2017-03-23] MEDS: ROSUVASTATIN 20 MG TABLET PO SCH (20:26)
[2017-03-23] MEDS: ASPIRIN EC 81 MG TABLET PO SCH (20:26)
[2017-03-23] MEDS: ZALEPLON 5 MG CAPSULE PO PRN (20:26)
[2017-03-23] MEDS: METOPROLOL SUCCINATE XL 25 MG TABLET PO SCH (20:27)
[2017-03-23] MEDS: MAGNESIUM HYDROXIDE SUSP 30 ML UDCUP PO PRN (20:37)
[2017-03-24] MEDS: HYDROmorphone 2 MG/1 ML VIAL IV PRN (04:26)
[2017-03-24] MEDS: ALBUTEROL/IPRATROPIUM 3 ML NEB RESP TX SCH ×3 (07:15→19:07)
[2017-03-24] MEDS: AMIODARONE 200 MG TABLET PO SCH ×2 (08:45→20:10)
[2017-03-24] MEDS: CEFEPIME 1,000 MG in SODIUM CHLORIDE 0.9% 50 ML IV SCH ×2 (08:45→20:10)
[2017-03-24] MEDS: NITROGLYCERIN 0.1 MG/HR PATCH TRANSDERM SCH (08:45)
[2017-03-24] MEDS: FERROUS SULFATE 325 MG TABLET PO SCH (08:45)
[2017-03-24] MEDS: PANTOPRAZOLE 40 MG TABLET PO SCH (08:45)
[2017-03-24] MEDS: DOCUSATE SODIUM 100 MG CAPSULE PO SCH (08:45)
--- NOTE | 2017-03-24 08:47 | Cardiothoracic Progress Note ---
Cardiothoracic Subjective Interval history: Patient looks and feels better. She has been ambulating in the hallways without difficulty. She is breathing comfortably and her vital signs are stable. She is asking to go home tomorrow and I think in all likelihood that she will be ready. We will plan to discharge in the morning unless new developments occur. Exam (Progress Note) - Constitutional Vitals: Period Temp Pulse Resp BP Sys/Rubio Pulse Ox Last 24 Hr 97.4 F-98.7 F 79-93 16-20 97-137/51-72 90-99 Result/EKG - Labs CBC & BMP: 03/23/17 04:41 03/23/17 04:41 Labs: Laboratory Results - last 24 hr 03/23/17 03/23/17 03/23/17 11:48 16:10 20:25 POC Glucose 146 H 192 H 146 H 03/24/17 07:24 POC Glucose 112 H Quality Measures - VTE Contraindication to Pharmacological VTE Prophylaxis: High Risk of Bleeding Specialty Discharge - Follow Up or Referrals
[2017-03-24] MEDS: INSULIN REGULAR 100 UNIT/ML SUBCUT SCH ×4 (08:54→20:11)
[2017-03-24] MEDS: CHLORHEXIDINE 0.12% ORAL RINSE 60 ML BOTTLE SWISH/SPIT SCH ×2 (08:56→20:11)
--- NOTE | 2017-03-24 11:10 | Pulmonology Progress Note ---
Pulmonary - PN: Subj Interval history: This is a 71-year-old female who had hypoxemia following coronary artery bypass grafts. She had a right pneumothorax and she had a chest tube which was removed on Sunday. Today is Sunday. She feels much better today and she is hoping to be discharged in another day or so. Patient does not have any history of lung disease and she has not been a cigarette smoker. Last chest x-ray was done 03/23/2017. I have reviewed it. There is no pneumothorax. There is no congestive heart failure. I do not see any infiltrates. Microbiology. No positive cultures. Lab. Creatinine is 0.8 electrolytes are normal H&H is 11.8/35.9 and platelets of 414,000 Physical exam. Vital signs see below afebrile General. No distress Psychiatric alert oriented 3 Face. Symmetrical. No edema of the lips or tongue. Neck. No meningismus Chest is symmetrical and clear Heart. No gallop Abdomen nondistended nontender and there are positive bowel sounds Right lower extremity reveals some residual edema. Neurologic. Cranial nerves are intact long track motor functions intact gait was not tested The remainder the physical exam is negative. Plan. 1. I have made no changes in patient's orders 2. I agree with plans. Exam (Progress Note) - Constitutional Vitals: Period Temp Pulse Resp BP Sys/Rubio Pulse Ox Last 24 Hr 97.4 F-98.7 F 79-93 16-20 97-137/51-72 90-99 Results - Labs CBC & BMP: 03/23/17 04:41 03/23/17 04:41 Specialty Discharge - Follow Up or Referrals
[2017-03-24] MEDS: MAGNESIUM HYDROXIDE SUSP 30 ML UDCUP PO PRN (16:10)
[2017-03-24] MEDS: ZALEPLON 5 MG CAPSULE PO PRN (20:10)
[2017-03-24] MEDS: METOPROLOL SUCCINATE XL 25 MG TABLET PO SCH (20:10)
[2017-03-24] MEDS: ASPIRIN EC 81 MG TABLET PO SCH (20:10)
[2017-03-24] MEDS: ROSUVASTATIN 20 MG TABLET PO SCH (20:10)
[2017-03-24] MEDS: KETOROLAC 30 MG/1 ML VIAL IV PRN (20:14)
[2017-03-25 04:39] LABS: Basophils % 0.2 % (0.0-0.8); Eosinophils # 0.4 10*3/uL (0.0-0.87); Eosinophils % 3.3 % (0.00-10.9); Hematocrit 31.8 VOL% (35.7-47.0); Hemoglobin 10.5 GM/DL (12.0-16.0); Immature Granulocytes % 2.1 %; Immature Granulocytes Absolute 0.26 #; Lymphocytes # 1.8 10*3/uL (1.4-4.0); Lymphocytes % 14.5 % (21.3-54.2); Mean Corpuscular Hemoglobin 28 PG (27-34); Mean Corpuscular Volume 83.7 FL (87-102); Mean Platelet Volume 10.3 FL (9.6-12.0); Neutrophils # 9.1 10*3/uL (1.4-7.4); Neutrophils % 71.9 % (38.7-73.9); Platelet Count 380 T/CUMM (130-400); Red Cell Distribution Width 19.8 % (9.3-17.3); White Blood Count 12.7 T/CUMM (4-12)
[2017-03-25 04:50] LABS: Alanine Aminotransferase 32 U/L (13-56); Albumin 2.2 G/DL (3.4-5.0); Alkaline Phosphatase 69 U/L (45-117); Aspartate Amino Transferase 23 U/L (0-37); Bilirubin,Indirect 0.3 MG/DL (0.0-1.0); Bilirubin,Total < 0.39 MG/DL (0.2-1.0); Blood Urea Nitrogen 17 MG/DL (7-18); Calcium 8.3 MG/DL (8.5-10.1); Glucose 125 MG/DL (74-106); Magnesium 2.9 MG/DL (1.8-2.4); Osmolality,Calculated 285.1 MOS/KG (273-304); Potassium 3.8 MMOL/L (3.5-5.1); Sodium 142 MMOL/L (136-145); Total Protein 4.9 G/DL (6.4-8.3)
[2017-03-25 04:55] LABS: Troponin I Only 0.868 NG/ML (0.00-0.045)
[2017-03-25] MEDS: ALBUTEROL/IPRATROPIUM 3 ML NEB RESP TX SCH (07:27)
[2017-03-25 08:06] VITALS: BP 102/52
[2017-03-25] MEDS: AMIODARONE 200 MG TABLET PO SCH (08:27)
[2017-03-25] MEDS: FERROUS SULFATE 325 MG TABLET PO SCH (08:27)
[2017-03-25] MEDS: CEFEPIME 1,000 MG in SODIUM CHLORIDE 0.9% 50 ML IV SCH (08:27)
[2017-03-25] MEDS: PANTOPRAZOLE 40 MG TABLET PO SCH (08:27)
[2017-03-25] MEDS: DOCUSATE SODIUM 100 MG CAPSULE PO SCH (08:27)
[2017-03-25] MEDS: INSULIN REGULAR 100 UNIT/ML SUBCUT SCH (08:27)
[2017-03-25] MEDS: NITROGLYCERIN 0.1 MG/HR PATCH TRANSDERM SCH (08:28)
[2017-03-25] MEDS: CHLORHEXIDINE 0.12% ORAL RINSE 60 ML BOTTLE SWISH/SPIT SCH (08:28)
--- NOTE | 2017-03-25 08:45 | Discharge Summary ---
Hospital Course - Hospital Course Hospital Course: History of present illness: Patient is 71-year-old lady who was evaluated in [place] for substernal chest discomfort. Cardiac catheterization demonstrated three-vessel coronary disease and the patient was advised to have bypass surgery. She was referred for that purpose. Past medical history review of systems social history and family history are documented in admission notes. Hospital course: Patient is was taken to surgery with three-vessel bypass grafting was carried out the graft to the internal mammary obtuse marginal and right coronary arteries. The postoperative course was marked by the occurrence of a pneumothorax which required a chest tube on the right side. She did have a period of pulmonary insufficiency which followed but which improved rapidly with the help of pulmonary consultation. At the time of discharge she was ambulating without assistance and appeared to be breathing comfortably without oxygen. She will be followed up in 1 month in my office and discharge medications are listed below. Specialty Discharge - Follow Up or Referrals Follow up with: Reji Hurst MD [Physician] - 1 Month Discharge Plan - Discharge Data Disposition: Disch To Home/Self Care Condition at Discharge: Stable Discharge Diet: advance to your usual diet Activity: resume usual activities as tolerated Hygiene: no restrictions Weight Bearing at Discharge: full weight bearing Driving: no restrictions - Discharge Medications New Amiodarone Tab [Cordarone Tab] 200 mg PO DAILY #14 tablet Aspirin EC Tab 81 mg PO BEDTIME tablet Continue NIFEdipine [Nifedipine ER] 30 mg PO BEDTIME Nitroglycerin 0.1 mg/Hr Patch [Nitro-Dur 0.1 mg/hr Patch] 1 patch TOP DAILY Metoprolol Succinate Xl [Toprol Xl] 25 mg PO BEDTIME Rosuvastatin Calcium 20 mg PO BEDTIME Omeprazole 40 mg PO BEDTIME Discontinued Aspirin [Ecotrin] 81 mg PO BEDTIME - Follow Up or Referral - Forms/Instructions Instructions: Heart Healthy Diet (GEN), Coronary Artery Bypass Graft, Hub Inventory Specialist (GEN), Sternal Precautions (GEN) Exam - Constitutional Vitals: Period Temp Pulse Resp BP Sys/Rubio Pulse Ox Last 24 Hr 97.3 F-100.1 F 70-96 16-20 97-110/52-55 90-96 Discharge Results Procedures and tests throughout hospitalization: Pending Orders 03/15/17 09:54 Fresh Frozen Plasma Routine Red Blood Cells Leuko Red Routine Single Donor Platelets Routine Type and Screen Routine 03/25/17 04:00 XR chest 2V IN AM 03/26/17 04:00 XR chest 2V IN AM Bilirubin Profile Adult IN AM Comp Blood Count Auto Diff IN AM Comprehensive Metabolic Panel IN AM Hepatic (Liver) Panel IN AM Magnesium IN AM Troponin,CKMB & Ck Total IN AM Labs on day of discharge: Labs from last 24 hours 03/25/17 03/25/17 03/25/17 07:47 04:02 04:02 WBC 12.7 H RBC 3.80 Hgb 10.5 L Hct 31.8 L MCV 83.7 L MCH 28 MCHC 33.0 RDW 19.8 H Plt Count 380 MPV 10.3 Neut % (Auto) 71.9 Lymph % (Auto) 14.5 L [place] % (Auto) 8.0 Eos % (Auto) 3.3 Baso % (Auto) 0.2 Neut # (Auto) 9.1 H Lymph # (Auto) 1.8 [place] # (Auto) 1.0 H Eos # (Auto) 0.4 Baso # (Auto) 0.0 Immature Gran % 2.1 Nucleated RBC % 0.0 Immature Gran # 0.26 Nucleated RBCs # 0.00 Immature Plt Fraction 0.0 Sodium 142 Potassium 3.8 Chloride 107 Carbon Dioxide 32 Anion Gap 6.8 BUN 17 Creatinine 0.90 GFR Calculation 80 BUN/Creatinine Ratio 18.00 Glucose 125 H POC Glucose 123 H Calculated Osmolality 285.1 Calcium 8.3 L Magnesium 2.9 H Total Bilirubin < 0.39 Direct Bilirubin 0.100 Indirect Bilirubin 0.3 AST 23 ALT 32 Alkaline Phosphatase 69 Total Creatine Kinase 61 D CK-MB (CK-2) < 1.0 Troponin I 0.868 H D Total Protein 4.9 L Albumin 2.2 L Globulin 2.7 Albumin/Globulin Ratio 0.8 L 03/24/17 03/24/17 03/24/17 20:09 15:54 11:11 WBC RBC Hgb Hct MCV MCH MCHC RDW Plt Count MPV Neut % (Auto) Lymph % (Auto) [place] % (Auto) Eos % (Auto) Baso % (Auto) Neut # (Auto) Lymph # (Auto) [place] # (Auto) Eos # (Auto) Baso # (Auto) Immature Gran % Nucleated RBC % Immature Gran # Nucleated RBCs # Immature Plt Fraction Sodium Potassium Chloride Carbon Dioxide Anion Gap BUN Creatinine GFR Calculation BUN/Creatinine Ratio Glucose POC Glucose 145 H 132 H 150 H Calculated Osmolality Calcium Magnesium Total Bilirubin Direct Bilirubin Indirect Bilirubin AST ALT Alkaline Phosphatase Total Creatine Kinase CK-MB (CK-2) Troponin I Total Protein Albumin Globulin Albumin/Globulin Ratio DS: Provider Date of admission: 03/15/17 09:08 Primary care physician: . No PCP Attending physician on admission: Reji Hurst MD Consults: 03/17/17 13:10 Consult to [facility], Educator [CONS] Routine Reason for Cleaning [place]: Diabetes Education Initial Insulin Education Consult Comment: insulin education Consult to Dietitian [CONS] Routine Reason for Dietitian: Dietary Consult Consult Comment: Cardiac, low salt, low cholesterol diet 03/21/17 16:28 Consult to Cardiac Rehabilitation [CONS] Routine Reason for Cardiac Rehabilitation: Other Consult Comment: Post CABG/heart surgery Consult to Diabetes Center, Educator [CONS] Routine Reason for Cleaning [place]: Diabetes Education Initial Insulin Education Consult Comment: insulin education Consult to Dietitian [CONS] Routine Reason for Dietitian: Dietary Consult Consult Comment: Cardiac, low salt, low cholesterol diet Consult to Physical Therapy [CONS] Routine Reason for Physical Therapy: Other Consult Comment: CV Rehab Discharging clinician: Reji Hurst MD Expected date of discharge: 03/25/17
--- NOTE | 2017-03-25 09:22 | XRay Report ---
XR chest 2V Indication: Shortness of breath Comparison: and February 2017 Findings: The heart and mediastinum are stable in size and configuration with cardiac surgery changes. Right internal jugular catheters unchanged in position. The pulmonary vascularity is normal in caliber. Left lower lung retrocardiac density is present similar to previous. No other lung infiltrates, effusions, pneumothorax or other abnormality is demonstrated. Impression: No significant changes. PROCEDURE INTERPRETED AT [facility] DEPARTMENT OF RADIOLOGY Final Report Signed by: Dr. Shemar Mcguire
--- NOTE | 2017-03-25 11:44 | Pulmonology Progress Note ---
Pulmonary - PN: Subj Interval history: This patient is being discharged today. I agree with your plans. I saw her yesterday but did not see her today. Exam (Progress Note) - Constitutional Vitals: Period Temp Pulse Resp BP Sys/Rubio Pulse Ox Last 24 Hr 97.3 F-100.1 F 70-96 16-20 99-110/52-55 90-96 Results - Labs CBC & BMP: 03/25/17 04:02 03/25/17 04:02 Specialty Discharge - Follow Up or Referrals Follow up with: Reji Hurst MD [Physician] - 1 Month
== END 2017-03-25 12:24 | disposition home or self-care (01) | DRG 235 ==
LOC: N.TELES 09:08 → N.CVR 03-16 08:34 → N.TELES 03-17 13:20 → N.ICU 03-18 18:02 → N.TELES 03-21 15:46